=== PATIENT | male | born 1935 | race Caucasian/White ===

== ENCOUNTER → 2023-02-19 | Outpatient (CLI) | payer MEDICARE, BC, SELFPAY ==
[2023-02-20 11:47] LABS: PSA,Total- Diagnostic < 0.01 ng/mL (0.0-4.0)
== END | disposition home or self-care (01) ==
PROVIDERS: PCP Internal Medicine; Referring Provider Urology; Visit Provider Urology
DX: C61 Malignant neoplasm of prostate (principal); Z12.5 Encounter for screening for malignant neoplasm of prostate
CPT/HCPCS: 36415; 84153; G0103

== ENCOUNTER 2023-03-17 10:19 | Outpatient (CLI) | payer MEDICARE, BC, SELFPAY ==
[2023-03-17 12:45] LABS: Absolute Lymphocyte Count 0.55 X10^3/uL (0.83-4.51); Absolute Neutrophil Count 5.9 X10^3/uL (2.0-7.7); Basophil# 0.06 X10^3/uL; Basophil% 0.8 % (0-1); Eosinophil# 0.14 X10^3/uL; Hematocrit 39.2 % (40-54); Hemoglobin 12.3 g/dL (13.0-16.5); Lymphocyte # 0.55 X10^3/ul (0.83-4.51); Lymphocyte % 7.7 % (19-41); Mean Corp Hgb Conc 31.4 g/dL (32-36); Mean Corpuscular Hgb 29.9 pg (27.0-32.0); Mean Corpuscular Volume 95.1 fL (80-94); Mean Platelet Vol. 10.7 fl (6.2-12.0); NRBC Flagged by Analyzer 0 % (0-5); Neutrophil # 5.87 X10^3/uL (2.7-7.7); Neutrophil % 82.2 % (47-70); POSITIVE DIFFERENTIAL YES; Platelet Count 238 K/mm3 (150-450); RBC Distribution Width CV 14.1 % (11.6-14.6); RBC Distribution Width SD 49.1 fl (35.1-43.9); Red Blood Count 4.12 M/mm3 (4.6-6.2); White Blood Count 7.1 K/mm3 (4.4-11.0)
[2023-03-17 12:47] LABS: Differential Indicated SCAN CRITERIA MET
[2023-03-17 13:15] LABS: ALB/GLOB Ratio 0.9 RATIO (0.9-2.4); AST(SGOT) 17 U/L (15-37); Alanine Aminotransfer ALT/SGPT 18 U/L (16-61); Albumin, Serum 3.5 g/dL (3.2-5.0); Alkaline Phosphatase 81 U/L (45-117); Anion Gap 5 (5-15); BUN 25 mg/dL (7-18); BUN/Creat Ratio 24.8 RATIO (10-20); Calcium,Total 9.3 mg/dL (8.5-10.1); Chloride 106 mmol/L (98-107); Cholesterol 115 mg/dL (200); Creatinine, Serum 1.01 mg/dL (0.70-1.30); EST Glomerular Filtration Rate 74 mL/min (>60); Est Glom Filt Rate - Afr Amer 90 mL/min (>60); Globulin 3.7 g/dL (2.2-4.2); Glucose 105 mg/dL (74-106); High Density Lipoprotein 51 mg/dL; Potassium 4.5 mmol/L (3.5-5.1); Protein, Total 7.2 g/dL (6.4-8.2); Sodium Level 139 mmol/L (136-145); Thyroid Stim Hormone (TSH) 2.99 uIU/mL (0.358-3.74); Triglycerides 100 mg/dL; Very Low Density Lipoprotein 20 mg/dL (5-40)
[2023-03-17 13:28] LABS: Differential Comment SCANNED
== END 2023-03-17 23:59 | disposition home or self-care (01) ==
LOC: MFPLAB 10:20
PROVIDERS: PCP Family Medicine; Visit Provider Family Medicine
DX: I25.10 Atherosclerotic heart disease of native coronary artery without angina pectoris (principal)
CPT/HCPCS: 36415; 80053; 80061; 84443; 85025

== ENCOUNTER → 2023-06-22 | Outpatient (CLI) | payer MEDICARE, BC, SELFPAY ==
[2023-06-22 10:55] LABS: PSA,Total- Diagnostic < 0.01 ng/mL (0.0-4.0)
== END | disposition home or self-care (01) ==
LOC: LAB 10:08
PROVIDERS: PCP Family Medicine; Referring Provider Urology; Visit Provider Urology
DX: C61 Malignant neoplasm of prostate (principal)
CPT/HCPCS: 36415; 84153

== ENCOUNTER → 2023-10-19 | Outpatient (CLI) | payer MEDICARE, BC, SELFPAY ==
[2023-10-19 11:44] LABS: PSA,Total- Diagnostic < 0.01 ng/mL (0.0-4.0)
== END | disposition home or self-care (01) ==
LOC: LAB 09:40
PROVIDERS: PCP Family Medicine; Referring Provider Nurse Practitioner; Visit Provider Nurse Practitioner
DX: C61 Malignant neoplasm of prostate (principal)
CPT/HCPCS: 36415; 84153

== ENCOUNTER → 2023-10-29 | Outpatient (CLI) | payer MEDICARE, BC, SELFPAY ==
--- NOTE | 2023-10-29 06:48 | CT_ITS ---
STUDY: CT ABDOMEN AND PELVIS WITH AND WITHOUT CONTRAST REASON FOR EXAM: Male, 88 years old. Gross hematuria RADIATION DOSAGE (If Supplied By Facility): CTDIvol = ( 13.27 ) mGy, DLP = ( 1487.68 ) mGycm TECHNIQUE: Transaxial images were obtained from the dome of the diaphragm to the symphysis pubis without oral contrast. IV 100mL Isovue-300 was administered. Sagittal and coronal images were reconstructed. Individualized dose optimization techniques were used for this CT. COMPARISON: None. FINDINGS: Mild increased interstitial markings at the lung bases suggesting mild scarring. Coronary artery calcification. Normal liver. There are multiple small gallstones. There are scattered benign calcified granulomata of the spleen. Normal pancreas. Normal bilateral adrenal glands. Normal right kidney. Normal left kidney. Normal visualized stomach. Normal small intestine. Normal colon. The appendix is visualized and appears normal. There is diffuse atherosclerotic calcification of the abdominal aorta and its major visceral branches, without a demonstrated aneurysm. Normal inferior vena cava. Normal retroperitoneum. Diffuse bladder wall thickening is seen. Cystocele. Surgical clips are seen in the region of the prostate bed suggestive of prior prostatectomy. Normal abdominal wall. There are diffuse degenerative changes of the visualized lumbar spine. Status post right total hip replacement causing beam hardening artifact in the region of the pelvis. CT/CT Abd/Pelvis W/WO Contrast IMPRESSION: Status post prostatectomy with a cystocele and bilateral wall thickening. Multiple small gallstones. Electronically Signed: Julian Talamantes MD at 15:20 EDT ,
[2023-10-29 07:17] LABS: CREATININE FINGERSTICK 1.1 mg/dL (0.70-1.30); EGFR FINGERSTICK > 60.0000 mL/min (>60)
== END | disposition home or self-care (01) ==
LOC: CT 06:47
PROVIDERS: PCP Family Medicine; Referring Provider Urology; Visit Provider Urology
DX: R31.0 Gross hematuria (principal)
CPT/HCPCS: 74178; Q9967

== ENCOUNTER → 2023-10-30 | Outpatient (CLI) | payer MEDICARE, BC, SELFPAY ==
--- NOTE | 2023-10-30 10:40 | RAD_ITS ---
STUDY: X-RAY - RIGHT FEMUR REASON FOR STUDY: Male, 88 years old. Right thigh injury. TECHNIQUE: 4 views of the right femur. COMPARISON: None. FINDINGS: There is a right hip arthroplasty. There is no periprosthetic fracture. Normal remainder of the visualized femur. There is no demonstrated fracture or destructive process. Normal visualized soft tissue structure. RAD/Femur Min 2 Views IMPRESSION: Right hip arthroplasty, with no periprosthetic fracture. Electronically Signed: Alessandro Hsieh MD at 11:17 EDT ,
== END | disposition home or self-care (01) ==
LOC: MTRAD 10:38
PROVIDERS: PCP Family Medicine; Referring Provider Family Medicine; Visit Provider Family Medicine
DX: S70.10XA Contusion of unspecified thigh, initial encounter (principal)
CPT/HCPCS: 73552

== ENCOUNTER 2023-11-18 12:40 | Day surgery (SDC) | payer MEDICARE, BC, SELFPAY ==
--- NOTE | 2023-11-18 | IMM_PTH ---
PATIENT: CELIA PRICE LOC: [facility] [place] U#:[id number] AGE/SX: 88/M ROOM: RE11/18/[address]: Dr. Fortino Marquez MD : 1935 BED: DIS: 11/18/2023 SPEC #: [id number] RECD: 11/20/23 14:57 STATUS: MAHESH REQ #: [id number] UNRULY: 11/18/23 00:[address]: Fortino Marquez DEPT: IMMUNOHISTOCHEMISTRY RECD BY: Bo Perez ENTERED: 11/20/23 14:59 SP TYPE: IMMUNO OTHR DR: Kassie Vital MD Tissues: Urinary bladder, NOS Procedures: CD31 (add) CK20 (add) CK5-6 (add) DESMIN (add) KI-67 (add) P53 (add) 34BE12 (add) SMM (add) FACTOR VIII (add) GATA3 (add) CK7 (initial) PHYSICIAN [facility] INSTIT[facility] [address] [address] SPECIMEN INFORMATION: Tissue Source: Bladder tumor Clinical Info: Bleeding bladder mass Specimen Number: [id number] CPT code: 69147, 11944e84 METHODOLOGY: Deparaffinized sections of prefer/formalin-fixed tissue or PAP/DQ stained slides are incubated with monoclonal/polyclonal antibodies/oligonucleotide probes. Localization is made via biotin free immunoperoxidase method. Appropriate controls are performed and reacted as expected. Results on target cell population are indicated in the following table: RESULTS: ANTIBODY / CLONE RESULT GATA3 (L50-823) positive CK7 (OV-TL12/30) positive CK20 (KS20.8) positive 34BE12 (34BE12) positive CD31 (LOAN/70A) negative Factor VIII (R Ag) negative Myosin (simms1) negative Desmin (CE-R-11) negative CK5-6 (D5 & 1684) negative P53 (DO-7) negative , null pattern Ki-67 (30-9) positive These tests were developed and their performance characteristics determined by [facility]. They may not have been cleared or approved by the U.S. Food and Drug Administration. The FDA has determined that such clearance or approval is not necessary. The above immunohistochemical/dualISH markers are ordered and reviewed by the Pathologist. INTERPRETATION: Bladder tumor, transurethral resection: Invasive urothelial carcinoma. RICHARD/ 11/23/23
[2023-11-18 13:22] VITALS: BP 143/85; PULSE 64; RESP 18; TEMP 37.2; O2SAT 99; BMI 22.7
[2023-11-18 13:23] LABS: Hematocrit 35.8 % (40-54); Hemoglobin 11.7 g/dL (13.0-16.5); Mean Corp Hgb Conc 32.7 g/dL (32-36); Mean Corpuscular Hgb 30.4 pg (27.0-32.0); Mean Platelet Vol. 9.9 fl (6.2-12.0); Platelet Count 264 K/mm3 (150-450); RBC Distribution Width CV 13.9 % (11.6-14.6); RBC Distribution Width SD 47.4 fl (35.1-43.9); Red Blood Count 3.85 M/mm3 (4.6-6.2); White Blood Count 6.7 K/mm3 (4.4-11.0)
[2023-11-18] MEDS: Lactated Ringers 1,000 ML 15 ML IV (13:27)
[2023-11-18 13:34] LABS: Prothrombin Time (Protime)PT. 12.7 SECONDS (11.7-14.9)
[2023-11-18 13:35] LABS: Partial Thromboplast Time 25.9 Seconds (24.1-36.2)
[2023-11-18 13:37] LABS: AST(SGOT) 18 U/L (15-37); Alanine Aminotransfer ALT/SGPT 14 U/L (16-61); Albumin, Serum 3.5 g/dL (3.2-5.0); Alkaline Phosphatase 108 U/L (45-117); Anion Gap 3 (5-15); BUN 32 mg/dL (7-18); BUN/Creat Ratio 28.3 RATIO (10-20); Calcium,Total 9.1 mg/dL (8.5-10.1); Chloride 106 mmol/L (98-107); Creatinine, Serum 1.13 mg/dL (0.70-1.30); EST Glomerular Filtration Rate 65 mL/min (>60); Est Glom Filt Rate - Afr Amer 79 mL/min (>60); Globulin 3.6 g/dL (2.2-4.2); Glucose 98 mg/dL (74-106); Potassium 4.2 mmol/L (3.5-5.1); Protein, Total 7.1 g/dL (6.4-8.2); Sodium Level 137 mmol/L (136-145)
--- NOTE | 2023-11-18 14:09 | PCM.HP.STD ---
HPI - General General Date of Service: 11/18/23 Chief Complaint: Bleeding bladder mass HPI Narrative CELIA PRICE, is a 88 M who presents for a transurethral section of a tumor in his bladder that is been bleeding as a history of prostate cancer. [facility] Medical History (Updated 11/17/23 @ 13:23 by Hayde Fountain) Alcohol use Arthritis Atherosclerosis of coronary artery of [place] heart without angina pectoris Bladder disease Cancer Cardiology follow-up encounter Easy bruising Fall Former smoker History of echocardiogram History of heart attack History of pain when walking History of stress test Hyperlipidemia Insomnia Loss of hearing Low iron Osteopenia RBBB (right bundle branch block) Walker as ambulation aid Wears glasses Home Medications aspirin 81 mg tablet,delayed release (Adult Low Dose Aspirin) 81 mg PO DAILY 03/26/23 [History Last Taken 11/15/23] atorvastatin 20 mg tablet 20 mg PO QHS 03/26/23 [History Last Taken 11/17/23] celecoxib 200 mg capsule 200 mg PO DAILY 03/26/23 [History Last Taken 11/17/23] metoprolol succinate 25 mg tablet,extended release 24 hr 25 mg PO DAILY 03/26/23 [History Last Taken 11/18/23] cholecalciferol (vitamin D3) 25 mcg (1,000 unit) capsule 25 mcg PO DAILY 04/17/23 [History Last Taken 11/17/23] coenzyme Q10 200 mg capsule 200 mg PO DAILY 04/17/23 [History Last Taken 11/17/23] glucosamine HCl 1,500 mg tablet 1,200 mg PO DAILY 04/17/23 [History Last Taken 11/17/23] lactobacillus combination no.9 4 billion cell capsule (Adult 50 Plus Probiotic) 4,000 mmu cells PO DAILY 04/17/23 [History Last Taken 11/17/23] multivitamin 1 tab PO DAILY 04/17/23 [History Last Taken 11/17/23] losartan 50 mg tablet 50 mg PO DAILY #90 tabs 09/16/23 [Rx Last Taken 11/18/23] krill 1,000 mg-omega-3 170 mg-dha 50 mg-epa 80 st-zhmmhc-gxahg capsule (krill oil) 1 cap PO DAILY 11/17/23 [History Last Taken 11/16/23] ciprofloxacin HCl 500 mg tablet (Cipro) 500 mg PO BID #10 tabs 11/18/23 [Rx Last Taken Unknown] Allergy/AdvReac Type Severity Reaction Status Date / Time codeine Allergy Unknown Unknown Verified 11/18/23 13:19 niacin Allergy Unknown itching Verified 11/18/23 13:19 Family History Father , 67 Heart disease Mother Hypertension CVA (cerebral vascular accident) Brother CAD (coronary artery disease) CABG Surgical History (Updated 11/17/23 @ 13:23 by Hayde Fountain) History of coronary artery stent placement (12/14/19) History of hernia repair History of left heart catheterization History of prostatectomy History of total right hip replacement Hx of colonoscopy Hx of left cataract extraction Hx of right cataract extraction Social History Smoking Status: Former smoker alcohol intake: current alcohol intake frequency: holidays/special occasions only caffeine: Yes Type: coffee Number of servings: 4 Vital Signs Vital Signs Vital Signs: 11/18/23 13:22 11/18/23 13:22 Temperature 99.0 F Temperature Source Temporal Pulse Rate 64 Respiratory Rate 18 Respiratory Pattern Normal Blood Pressure 143/85 H Blood Pressure Mean 104 Blood Pressure Source Monitor Blood Pressure Position Semi-Fowlers Blood Pressure Location Right Arm Pulse Ox 99 Oxygen Delivery Method Room Air Weight Weight: 72 kg Body Mass Index (BMI) 22.7 Results Lab / Micro Data 11/18/23 13:10 11/18/23 13:10 Labs: Laboratory Results - last 24 hr 11/18/23 13:10: WBC 6.7, RBC 3.85 L, Hgb 11.7 L, Hct 35.8 L, MCV 93.0, MCH 30.4, MCHC 32.7, RDW Std Deviation 47.4 H, RDW Coeff of Daniela 13.9, Plt Count 264, MPV 9.9, PT 12.7, INR 1.0, APTT 25.9, Sodium 137, Potassium 4.2, Chloride 106, Carbon Dioxide 28.0, Anion Gap 3 L, BUN 32 H, Creatinine 1.13, Estim Creat Clear Calc 46.90, Est GFR (MDRD) Af Amer 79, Est GFR (MDRD) Non-Af 65, BUN/Creatinine Ratio 28.3 H, Glucose 98, Calcium 9.1, Total Bilirubin 0.70, Direct Bilirubin 0.20, AST 18, ALT 14 L, Alkaline Phosphatase 108, Total Protein 7.1, Albumin 3.5, Globulin 3.6
--- NOTE | 2023-11-18 14:10 | DCINST_ITS ---
Discharge Instructions Diet Discharge Diet: No restrictions Activity Discharge Activity: Return to Normal Activity and May Not Drive (while taking narcotic pain medications.) Dressing / Incision Call your doctor if you observe: Fever of 101 or Higher Follow Up Care Please Follow Up With: Fortino Marquez MD When: Call [phone] for an appointment Test Results: Test results from this visit will be discussed in further detail at your follow- up appointment, if applicable. Discharge Plan Admission Primary Reason for Your Visit: Resection of bladder tumor Attending Provider: Fortino Marquez Primary Care Provider: Kassie Vital Discharge Orders/Prescriptions Prescriptions: New ciprofloxacin HCl [Cipro] 500 mg tablet 500 mg PO BID Qty: 10 0RF Continued atorvastatin 20 mg tablet 20 mg PO QHS celecoxib 200 mg capsule 200 mg PO DAILY metoprolol succinate 25 mg tablet extended release 24 hr 25 mg PO DAILY glucosamine HCl 1,500 mg tablet 1,200 mg PO DAILY Rx Instructions: administer with a meal multivitamin Tablet 1 tab PO DAILY Adult 50 Plus Probiotic 4 billion cell capsule 4,000 mmu cells PO DAILY Rx Instructions: administer with a meal cholecalciferol (vitamin D3) 25 mcg (1,000 unit) capsule 25 mcg PO DAILY coenzyme Q10 200 mg capsule 200 mg PO DAILY krill oil 1,906-981-10-80 mg capsule 1 cap PO DAILY losartan 50 mg tablet 50 mg PO DAILY Qty: 90 3RF Held aspirin [Adult Low Dose Aspirin] 81 mg tablet,delayed release (DR/EC) 81 mg PO DAILY Hold Instructions: Resume on 12/02/23. Referrals / Follow Up: Kassie Vital MD [Primary Care Provider] - Fortino Marquez MD [Med Staff - Active Staff] - Disposition Disposition (needs filled in before D/C Order can be placed): Home, Self Care
[2023-11-18] MEDS: Cefazolin 2 GM in 0.9% Normal Saline (100mL Bag) 100 ML IV (14:14)
[2023-11-18] MEDS: Ketorolac 30 MG/ML Syringe 15 MG IV (14:30)
[2023-11-18] MEDS: MitoMYcin 40 MG in Syringe 1 EACH 2400 MG INSTILLAT (14:43)
--- NOTE | 2023-11-18 14:44 | OP.PCM_ITS ---
Report of Operation Date of Procedure: 11/18/23 Pre-Operative Diagnosis: Transurethral resection of bladder tumors multiple med ium size Post-Operative Diagnosis: The same the size of tumors were 2 tumors total size 2.5 cm x 3 cm Surgery/Procedure Performed:: Transurethral section of bladder tumors multiple medium size Description of Surgical Findings:: Patient presented to the hospital for treatment of a tumor that was found in the bladder with a very large bladder tumor. Patient understands is possible it may not be able to resect the entire tumor. Patient also understands is possible that the patient may need multiple procedures or more invasive procedures to cure him of this cancer. Patient was taken back to the operating room after smooth induction of anesthesia the patient was placed supine on the table. The patient was placed in dorsolithotomy position. The urethra and genitals prepped and draped in usual sterile fashion. I went into the bladder with a 30 degree lens and a cystoscope was performed and identified the tumor the tumors which was about 2.5cm x 3cma centimeters in size and occupying the left bladder neck and posterior wall of the bladder. I then switched over to the 70 degree lens and inspected the rest of the bladder with a 70 degree lens to make sure there is no other tumors in the bladder and to identify all the tumor locations. The right and left ureteral orifice were identified. The tumor was involved in the ureteral orifice. I then placed the Olympus bipolar resectoscope with a large loop into the bladder. I then started resected the tumor and started superficially shaving small little pieces working my way to the base of the tumor. As I went along I then cauterize any bleeders that were encountered during the resection. The tumor pieces were then flushed out of the bladder and continued resecting the tumor until finally I got down to the base of the tumor and the muscle of the bladder was then identified a small little bit of muscle was taken with the resection. The Ellik was used then to evacuate all the tumor pieces out of the bladder. I then cauterized extensively the tumor base and also circumferentially around where the tumor was. Again we made sure to evacuate all the pieces out the bladder. I made sure there was no more bleeding from the base of the bladder and then over the tumor pieces were then evacuated out and sent off as a specimen. After the resection of the entire tumor was completed then treatment with Mitomycin-C was performed. We then placed the catheter in the bladder and the patient was taken back to the PACU in stable condition. Surgeon: Fortino Marquez Type of Anesthesia: General Drains: none Estimated Blood Loss (mL): 0 Admit VTE Documentation VTE Present on Admission: No VTE Mechan Device Prophylaxis: SCD's VTE Pharm Prophylaxis ordered?: No
[2023-11-18 14:55] VITALS: BP 138/62; BP 143/85; PULSE 61; RESP 16; TEMP 36.9; O2SAT 100
[2023-11-18 15:00] VITALS: BP 143/85; BP 144/62; PULSE 61; RESP 16; O2SAT 98
--- NOTE | 2023-11-18 15:05 | BLB_PTH ---
PATIENT: CELIA PRICE LOC: [facility] [place] U#:[id number] AGE/SX: 88/M ROOM: RE11/18/[address]: Dr. 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 See synoptic report below. 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 Additional pathologic findings: Tumor cell necrosis PATHOLOGIC STAGE: T1 Nx Mx The above summary is in compliance with [employer] (CAP) Cancer Protocols Checklist and [place] [employer] Committee on Cancer (AJCC), Staging Manual, 8th Ed. Immunohistochemistry ([id number]) supports the above diagnosis. Case has been reviewed in consultation with Dr. Huggins who concurs with the above diagnosis. IDC:[email or web address] MICROSCOPIC DESCRIPTION Slides are reviewed. GROSS DESCRIPTION Received in fixative is one container labeled with the patient's name and designated Bladder tumor. The specimen consists of multiple irregular fragments of majano-brown soft tissue that in aggregate measure 2.0 x 0.5 x 0.1 cm. The specimen is totally submitted in one cassette. SJ/ 11/19/2023 TC:0 CPT:02805
[2023-11-18 15:15] VITALS: BP 142/64; BP 143/85; PULSE 62; RESP 16; O2SAT 99
[2023-11-18 15:29] VITALS: BP 143/85; BP 153/76; PULSE 65; RESP 16; TEMP 36.8; O2SAT 100
[2023-11-18 16:27] VITALS: BP 143/85
== END 2023-11-18 16:35 | disposition home or self-care (01) ==
LOC: SDC 12:41 → AC 12:42
PROVIDERS: Anesthesiology; PCP Family Medicine; Referring Provider Family Medicine; Visit Provider Urology
PROC: 0T5B8ZZ Destruction of Bladder, Via Natural or Artificial Opening Endoscopic (ICD-10-PCS; CPT 51720; principal; 2023-11-18 14:55)
DX: C67.9 Malignant neoplasm of bladder, unspecified (principal); E78.5 Hyperlipidemia, unspecified; Z82.3 Family history of stroke; I25.10 Atherosclerotic heart disease of native coronary artery without angina pectoris; Z79.82 Long term (current) use of aspirin; Z87.891 Personal history of nicotine dependence; Z85.46 Personal history of malignant neoplasm of prostate; I25.2 Old myocardial infarction; Z95.5 Presence of coronary angioplasty implant and graft; I45.10 Unspecified right bundle-branch block; R23.3 Spontaneous ecchymoses; Z87.19 Personal history of other diseases of the digestive system; Z96.641 Presence of right artificial hip joint; Z98.42 Cataract extraction status, left eye; Z98.41 Cataract extraction status, right eye; Z90.79 Acquired absence of other genital organ(s)
CPT/HCPCS: 52235; 00912; 80048; 80076; 85027; 85610; 85730; 88307; 88341; 88342; J7120; J9280; J2405

== ENCOUNTER 2024-01-18 09:22 | Inpatient (IN) | payer MEDICARE, BC, SELFPAY ==
[2024-01-18] VITALS (10 sets, daily range): BP systolic 106–151; BP diastolic 57–134; PULSE 65–99; RESP 17–18; TEMP 36.3–36.7; O2SAT 94–100; BMI 21.7; BMI 20.9
--- NOTE | 2024-01-18 09:47 | EX.ED.DYSGE1 ---
HPI History of Present Illness Chief Complaint: Weakness [facility] Medical History (Updated 11/17/23 @ 13:23 by Hayde Fountain) Loss of hearing Wears glasses Cancer Alcohol use Arthritis Walker as ambulation aid Bladder disease Low iron Easy bruising Fall Former smoker History of pain when walking History of echocardiogram History of stress test Cardiology follow-up encounter History of heart attack Atherosclerosis of coronary artery of [place] heart without angina pectoris RBBB (right bundle branch block) Hyperlipidemia Insomnia Osteopenia Home Medications ?Medication ?Instructions ?Recorded ?Last Taken ?Type aspirin 81 mg tablet,delayed 81 mg PO DAILY 03/26/23 11/15/23 History release (Adult Low Dose Aspirin) atorvastatin 20 mg tablet 20 mg PO QHS 03/26/23 01/15/24 History celecoxib 200 mg capsule 200 mg PO DAILY 03/26/23 01/15/24 History metoprolol succinate 25 mg 25 mg PO DAILY 03/26/23 01/15/24 History tablet,extended release 24 hr cholecalciferol (vitamin D3) 25 25 mcg PO DAILY 04/17/23 01/15/24 History mcg (1,000 unit) capsule coenzyme Q10 200 mg capsule 200 mg PO DAILY 04/17/23 01/15/24 History glucosamine HCl 1,500 mg tablet 1,200 mg PO DAILY 04/17/23 01/15/24 History lactobacillus combination no.9 4 4,000 mmu cells PO DAILY 04/17/23 01/15/24 History billion cell capsule (Adult 50 Plus Probiotic) multivitamin 1 tab PO DAILY 04/17/23 01/15/24 History losartan 50 mg tablet 50 mg PO DAILY #90 tabs 09/16/23 01/15/24 Rx krill 1,000 mg-omega-3 170 mg-dha 1 cap PO DAILY 11/17/23 11/16/23 History 50 mg-epa 80 [id number]-[id number] capsule (krill oil) Allergy/AdvReac Type Severity Reaction Status Date / Time codeine Allergy Unknown Unknown Verified 01/18/24 09: niacin Allergy Unknown itching Verified 01/18/24 09:23 Family History Father , 67 Heart disease Mother Hypertension CVA (cerebral vascular accident) Brother CAD (coronary artery disease) CABG Surgical History (Updated 11/17/23 @ 13:23 by Hayde Fountain) Hx of colonoscopy Hx of right cataract extraction Hx of left cataract extraction History of coronary artery stent placement (12/14/19) History of left heart catheterization History of prostatectomy History of total right hip replacement History of hernia repair Social History Smoking Status: Former smoker alcohol intake: current alcohol intake frequency: holidays/special occasions only caffeine: Yes Type: coffee Number of servings: 4 EXAM Physical Exam Const Vital Signs: 01/18/24 09:24 01/18/24 10:07 01/18/24 10:23 Temperature 97.4 F L Temperature Source Temporal Pulse Rate 99 75 Respiratory Rate 18 18 Respiratory Pattern Normal Blood Pressure 151/134 H 120/57 L Blood Pressure Mean 139 78 Pulse Ox 97 95 Oxygen Delivery Method Room Air Room Air 01/18/24 10:27 01/18/24 11:10 Temperature 97.6 F L 97.6 F L Temperature Source Temporal Temporal Pulse Rate 81 82 Respiratory Rate 18 17 Respiratory Pattern Blood Pressure 120/57 L 106/60 Blood Pressure Mean 78 75 Pulse Ox 95 96 Oxygen Delivery Method Room Air Room Air MDM MDM MDM Narrative Medical decision making narrative: HISTORY OF PRESENT ILLNESS: 88-year-old male presents with concern for weakness. He is unable to care for himself per his . He has not been eating or drinking. He does not voice concerns he just moans in pain. REVIEW OF SYSTEMS: Pertinent positives: weakness Pertinent negatives: [] PHYSICAL EXAM: Nursing triage notes reviewed, Vital signs reviewed Constitutional: please see mdm HENT: MMM Eyes: Pupils equal round and reactive to light, Extraocular muscles intact Neck: No stridor, no JVD, full neck ROM Lungs: Clear to auscultation, No wheezing or rales. No increased work of breathing, no conversational dyspnea, no accessory muscle use, no nasal flaring. No respiratory distress noted Heart: Regular rate and rhythm, No murmurs, No rubs and No gallops, 2+ distal pulses (radial, femoral, posterior tibial) in all extremities Abdomen: Soft, there is no tenderness, rigidity, rebound or guarding, no obvious peritoneal signs, no palpable pulsatile abdominal masses, no auscultated abdominal bruit : No CVAT Extremities: No edema Neuro: No focal neurological deficits, cranial nerves II through XII intact, 5/5 strength in all extremities. Intact sensation to light touch in all extremities, 2+ reflexes bilateral patella tendons. Normal gait. No ataxia. Skin: No rash or lesions noted, small punctate defect to the sacrum no obvious sacral decubitus ulcer infection noted MEDICAL DECISION MAKING: Chief Complaint: Weakness External records reviewed: Imaging reviewed: Reviewed CT scan of the abdomen pelvis from October 2023 shows no obvious surgical abnormality Factors affecting care: Hypertension, CAD, hyperlipidemia, prostate and bladder cancer Social determinants of health: Elderly History obtained from others: The patient's Consults: Internal medicine (Dr. Fry) MDM Narrative: Patient was hemodynamically stable, afebrile and nontoxic. Exam without focal deficits. I considered the following differential diagnosis: UTI, pneumonia, ACS, arrhythmia, anemia, electrolyte disturbance, dehydration ALL IMAGES (IF OBTAINED) HAVE BEEN PERSONALLY REVIEWED AND INTERPRETED BY MYSELF. I have personally reviewed the patient's chest x-ray. Chest x-ray is unremarkable for pulmonary edema, pneumothorax, pneumonia or focal cardiopulmonary abnormality. CBC with no leukocytosis, noted mild anemia, thrombocytopenia BMP with hyponatremia, no other significant [place] normalities, noted ADRIAN on CKD, noted hypercalcemia, High-sensitivity troponin is negative, no evidence of myocardial ischemia BNP within normal limits EKG with normal sinus rhythm, left ax deviation, right bundle branch block, no STEMI Urinalysis evidence of inflammation and infection The synthesis of the patient's history, physical exam, labs images suggest likely UTI The patient and/or family, caregivers express understanding. The patient and/or family, caregivers agrees with the plan. Shared decision making: I will have a discussion with the patient and or visitors regarding risk/benefits of further testing or admission. They will be made aware of of the risk/benefits inherent in this decision they will be given the opportunity to voice understanding. Total critical care time today provided was at least 0 minutes. This excludes separately billable procedures. Critical care time (if documented) is secondary to the patient having high probability of clinically significant/life threatening deterioration in the patient's condition which required my urgent intervention. Impression: 1. Weakness 2. Adult failure to thrive 3. UTI 4. ADRIAN 5. Hypercalcemia Dispo: Admit to floor This note was generated with SmashFlyation software. It may contain incorrect words, spelling, and punctuation that were not noted in review of the chart prior to signing. Lab Data Labs: Laboratory Results - last 24 hr 01/18/24 01/18/24 01/18/24 09:46 10:07 10:34 WBC 5.6 RBC 4.45 L Hgb 12.6 L Hct 38.7 L MCV 87.0 MCH 28.3 MCHC 32.6 RDW Std Deviation 42.7 RDW Coeff of Daniela 13.5 Plt Count 247 MPV 10.3 Immature Gran % (Auto) 0.500 Neut % (Auto) 76.2 H Lymph % (Auto) 11.2 L Wolfe % (Auto) 11.2 H Eos % (Auto) 0.2 Baso % (Auto) 0.7 Absolute Neuts (auto) 4.2 Absolute Lymphs (auto) 0.62 L Nucleated RBC % 0 Sodium 130 L Potassium 4.3 Chloride 97 L Carbon Dioxide 26.0 Anion Gap 7 BUN 41 H Creatinine 1.67 H Estim Creat Clear Calc 30.28 Est GFR (MDRD) Af Amer 50 L Est GFR (MDRD) Non-Af 42 L BUN/Creatinine Ratio 24.6 H Glucose 122 H Calcium 11.4 H Troponin I High Sens 9 B-Natriuretic Peptide 59.7 Urine Color Yellow Urine Clarity Cloudy Urine pH 5.0 Ur Specific [place] 1.020 Urine Protein 30 H Urine Glucose (UA) Normal Urine Ketones 5 H Urine Occult Blood 25 H Urine Nitrite Negative Urine Bilirubin Negative Urine Urobilinogen Normal Ur Leukocyte Esterase 500 H Urine RBC 0-5 SEEN Urine WBC 25-50 SEEN Ur Squamous Epith Cells 0-5 SEEN Amorphous Sediment 1+ Urine Bacteria 1+ Urine Mucus RARE POC Glucose 118 H Radiography Diagnostic Testing: Clinical Impression(s) from Imaging Studies Chest X-Ray 01/18/24 10:03 IMPRESSION: Elevation of the left hemidiaphragm. Increased interstitial markings at the lung bases suggestive basilar scarring. Electronically Signed: Julian Talamantes MD at 10:17 EDT , Discharge Plan Triage Chief Complaint: Weakness ED Provider: Lloyd Jones Dx/Rx/DC Orders Prescriptions: No Action aspirin [Adult Low Dose Aspirin] 81 mg tablet,delayed release (DR/EC) 81 mg PO DAILY atorvastatin 20 mg tablet 20 mg PO QHS celecoxib 200 mg capsule 200 mg PO DAILY metoprolol succinate 25 mg tablet extended release 24 hr 25 mg PO DAILY glucosamine HCl 1,500 mg tablet 1,200 mg PO DAILY Rx Instructions: administer with a meal multivitamin Tablet 1 tab PO DAILY Adult 50 Plus Probiotic 4 billion cell capsule 4,000 mmu cells PO DAILY Rx Instructions: administer with a meal cholecalciferol (vitamin D3) 25 mcg (1,000 unit) capsule 25 mcg PO DAILY coenzyme Q10 200 mg capsule 200 mg PO DAILY krill oil 1,801-977-61-80 mg capsule 1 cap PO DAILY losartan 50 mg tablet 50 mg PO DAILY Qty: 90 3RF Primary Care Provider: Kassie Vital Referrals: Kassie Vital MD [Primary Care Provider] - Print Language: Lithuanian
--- NOTE | 2024-01-18 09:50 | EKG12_ITS ---
Test Reason : Blood Pressure : / mmHG Vent. Rate : 084 BPM Atrial Rate : 084 BPM P-R Int : 150 ms QRS Dur : 120 ms QT Int : 380 ms P-R-T Axes : 060 -15 -14 degrees QTc Int : 449 ms Normal sinus rhythm with sinus arrhythmia Right bundle branch block Inferior infarct , age undetermined Abnormal ECG Confirmed by Ronak Godoy ([id number]), editor producer ABDELRAHMAN MULTANI ([id number]) on 01/19/2024 9:09:30 AM Referred By: ABEL Confirmed By:Ronak Godoy
[2024-01-18 10:01] LABS: Absolute Lymphocyte Count 0.62 X10^3/uL (0.83-4.51); Absolute Neutrophil Count 4.2 X10^3/uL (2.0-7.7); Basophil# 0.04 X10^3/uL; Basophil% 0.7 % (0-1); Eosinophil# 0.01 X10^3/uL; Eosinophils% 0.2 % (0-5); Hematocrit 38.7 % (40-54); Hemoglobin 12.6 g/dL (13.0-16.5); Lymphocyte # 0.62 X10^3/ul (0.83-4.51); Lymphocyte % 11.2 % (19-41); Mean Corp Hgb Conc 32.6 g/dL (32-36); Mean Corpuscular Hgb 28.3 pg (27.0-32.0); Mean Platelet Vol. 10.3 fl (6.2-12.0); Monocyte# 0.62 X10^3/uL; Monocyte% 11.2 % (0-10); NRBC Flagged by Analyzer 0 % (0-5); Neutrophil # 4.24 X10^3/uL (2.7-7.7); Neutrophil % 76.2 % (47-70); Platelet Count 247 K/mm3 (150-450); RBC Distribution Width CV 13.5 % (11.6-14.6); RBC Distribution Width SD 42.7 fl (35.1-43.9); Red Blood Count 4.45 M/mm3 (4.6-6.2); White Blood Count 5.6 K/mm3 (4.4-11.0)
--- NOTE | 2024-01-18 10:03 | RAD_ITS ---
STUDY: X-RAY CHEST REASON FOR EXAM: Male, 88 years old. Weakness TECHNIQUE: Single AP portable view of the chest. COMPARISON: Comparison is made with prior study dated April 13, 2013. FINDINGS: EKG electrodes are seen. Mild elevation of the left hemidiaphragm. Increased markings at the lung bases suggestive of linear scarring. There is no demonstrated pleural abnormality. Normal size heart. Normal mediastinum and kyra. Normal visualized pulmonary arteries. Normal visualized aortic arch and descending thoracic aorta. There are diffuse degenerative changes of the visualized thoracic spine. Normal visualized ribs, clavicles, and shoulders. There is no demonstrated abnormality of the visualized soft tissue structures of the upper abdomen. RAD/Chest 1 View (Portable) IMPRESSION: Elevation of the left hemidiaphragm. Increased interstitial markings at the lung bases suggestive basilar scarring. Electronically Signed: Julian Talamantes MD at 10:17 EDT ,
[2024-01-18] MEDS: 0.9% Normal Saline (500mL Bag) 500 ML 1000 ML IV (10:09)
[2024-01-18 10:20] LABS: Anion Gap 7 (5-15); BUN 41 mg/dL (7-18); BUN/Creat Ratio 24.6 RATIO (10-20); Calcium,Total 11.4 mg/dL (8.5-10.1); Chloride 97 mmol/L (98-107); Creatinine, Serum 1.67 mg/dL (0.70-1.30); EST Glomerular Filtration Rate 42 mL/min (>60); Est Glom Filt Rate - Afr Amer 50 mL/min (>60); Estimated Creatinine Clearance 30.28 ml/min; Glucose 122 mg/dL (74-106); Potassium 4.3 mmol/L (3.5-5.1); Sodium Level 130 mmol/L (136-145); Troponin-I HS 9 pg/mL (3.0-78.0)
[2024-01-18 10:22] LABS: BNP,B-Type NATRIURETIC PEPTIDE 59.7 pg/mL (0-100)
--- NOTE | 2024-01-18 10:23 | CT_ITS ---
STUDY: CT ABDOMEN AND PELVIS WITHOUT CONTRAST REASON FOR EXAM: Male, 88 years old. Abdominal pain. Patient has history of bladder and prostate cancer. RADIATION DOSAGE (If Supplied By Facility): CTDIvol = ( 8.6 ) mGy, DLP = ( 414.71 ) mGycm TECHNIQUE: Transaxial images were obtained from the dome of the diaphragm to the symphysis pubis without oral contrast, and without intravenous contrast. Sagittal and coronal images were reconstructed. Individualized dose optimization techniques were used for this CT. COMPARISON: Comparison is made with prior study dated October 29, 2023. FINDINGS: Stable mild increased interstitial markings at the lung bases suggestive of scarring. Coronary artery calcification. Normal liver. There are multiple gallstones. There are multiple benign calcified granulomata of the spleen. Normal pancreas. There is a small, circumscribed, smooth, low attenuation left adrenal mass, consistent with an adrenal adenoma. This measures 1.5 cm. Normal right adrenal gland. Normal right kidney. Normal left kidney. Normal visualized stomach. Normal small intestine. Normal colon. The appendix is visualized and appears normal. There is diffuse atherosclerotic calcification of the abdominal aorta and its major visceral branches, without a demonstrated aneurysm. Normal inferior vena cava. Normal retroperitoneum. Mild degree of bladder wall thickening. Surgical clips are seen in the region of the prostate suggestive of prior cholecystectomy. Normal abdominal wall. There are diffuse degenerative changes of the visualized lumbar spine. Status post right total hip replacement. There is evidence of a bony destruction along the medial aspect of the right superior pubic ramus with fracture. There is also destruction of the anterior aspect of the right inferior pubic ramus. Nondisplaced fracture of the right sacral wing. CT/Abdomen/Pelvis without Cont IMPRESSION: Scarring at the lung bases. Fracture of the right superior and inferior pubic rami with a possible metastatic deposit. Fracture through the right sacral wing. Status post right total hip replacement. Multiple small gallstones. Prior resection of the prostate. Electronically Signed: Julian Talamantes MD at 12:10 EDT ,
[2024-01-18 10:28] LABS: Bedside Glucose 118 mg/dL (74-106)
[2024-01-18 10:42] LABS: Color, Urine Yellow (Yellow); Glucose, Dipstick Normal (Normal); Ketone-Dipstick 5 mg/dl (Negative); Leukocyte Esterase-Dipstick 500 /ul (Negative); Nitrite-Dipstick Negative (Negative); Occult Blood-Urine 25 /ul (Negative); Protein-Dipstick 30 mg/dl (Negative); Urine Bilirubin Dipstick Negative (Negative); Urine Clarity Cloudy (Clear); Urine Urobilinogen Normal (Normal)
[2024-01-18 11:00] LABS: Amorphous Sediment 1+; Bacteria 1+ /hpf (None Seen); Mucous, Urine RARE /hpf (<or=2+); Red Blood Cells-Urine 0-5 SEEN /hpf (0-5); Squamous Epithelial Cells - UA 0-5 SEEN /hpf (0-5); White Blood Cells 25-50 SEEN /hpf (0-5)
[2024-01-18] MEDS: Ceftriaxone 1 GM/50 ML BAG IV (12:14)
--- NOTE | 2024-01-18 12:47 | PCM.HP.STD ---
[facility] - General General Date of Service: 01/18/24 Chief Complaint: Weakness HPI Narrative CELIA PRICE, is a 88 M who presents with weakness. This is a gentleman who is being actively treated for bladder cancer, baseline performance status is limited as he does use a walker and has had falls on occasion. He does have limitations because he had a prior right hip replacement and that limits his walking. But over the past couple days primarily, he has had increased weakness to the point where he can even lift his head off the bed, he has not eaten in about 48 hours. So patient presented to the emergency room for evaluation. Patient was stable in the emergency room but his labs show sodium 130, creatinine of 1.67 (with a baseline of around 1.1), calcium of 11.4 and a urinalysis that was a concern for urinary tract infection. Patient received IV fluids as well as ceftriaxone in the emergency room. After the IV fluids, it was noted by the patient as well as his that he was feeling better and actually able to lift his head off the bed. [facility] Medical History Loss of hearing Wears glasses Cancer Alcohol use Arthritis Walker as ambulation aid Bladder disease Low iron Easy bruising Fall Former smoker History of pain when walking History of echocardiogram History of stress test Cardiology follow-up encounter History of heart attack Atherosclerosis of coronary artery of [place] heart without angina pectoris RBBB (right bundle branch block) Hyperlipidemia Insomnia Osteopenia Home Medications ?Medication ?Instructions ?Recorded ?Last Taken ?Type aspirin 81 mg tablet,delayed 81 mg PO DAILY 03/26/23 11/15/23 History release (Adult Low Dose Aspirin) atorvastatin 20 mg tablet 20 mg PO QHS 03/26/23 01/15/24 History celecoxib 200 mg capsule 200 mg PO DAILY 03/26/23 01/15/24 History metoprolol succinate 25 mg 25 mg PO DAILY 03/26/23 01/15/24 History tablet,extended release 24 hr cholecalciferol (vitamin D3) 25 25 mcg PO DAILY 04/17/23 01/15/24 History mcg (1,000 unit) capsule coenzyme Q10 200 mg capsule 200 mg PO DAILY 04/17/23 01/15/24 History glucosamine HCl 1,500 mg tablet 1,200 mg PO DAILY 04/17/23 01/15/24 History lactobacillus combination no.9 4 4,000 mmu cells PO DAILY 04/17/23 01/15/24 History billion cell capsule (Adult 50 Plus Probiotic) multivitamin 1 tab PO DAILY 04/17/23 01/15/24 History losartan 50 mg tablet 50 mg PO DAILY #90 tabs 09/16/23 01/15/24 Rx krill 1,000 mg-omega-3 170 mg-dha 1 cap PO DAILY 11/17/23 11/16/23 History 50 mg-epa 80 vq-warhwh-kcmbm capsule (krill oil) Allergy/AdvReac Type Severity Reaction Status Date / Time codeine Allergy Unknown Unknown Verified 01/18/24 09:23 niacin Allergy Unknown itching Verified 01/18/24 09:23 Family History Father , 67 Heart disease Mother Hypertension CVA (cerebral vascular accident) Brother CAD (coronary artery disease) CABG Surgical History Hx of colonoscopy Hx of right cataract extraction Hx of left cataract extraction History of coronary artery stent placement (12/14/19) History of left heart catheterization History of prostatectomy History of total right hip replacement History of hernia repair Social History Smoking Status: Former smoker alcohol intake: current alcohol intake frequency: holidays/special occasions only caffeine: Yes Type: coffee Number of servings: 4 ROS ROS Narrative He has developed wound on his backside that his has been tending to. All review of systems were negative except as mentioned above in the history of present illness and the other review of systems. Vital Signs Vital Signs Vital Signs: 01/18/24 09:24 01/18/24 10:07 01/18/24 10:23 Temperature 36.3 C L Temperature Source Temporal Pulse Rate 99 75 Respiratory Rate 18 18 Respiratory Pattern Normal Blood Pressure 151/134 H 120/57 L Blood Pressure Mean 139 78 Pulse Ox 97 95 Oxygen Delivery Method Room Air Room Air 01/18/24 10:27 01/18/24 11:10 01/18/24 12:00 Temperature 36.4 C L 36.4 C L 36.6 C Temperature Source Temporal Temporal Temporal Pulse Rate 81 82 74 Respiratory Rate 18 17 18 Respiratory Pattern Blood Pressure 120/57 L 106/60 111/57 L Blood Pressure Mean 78 75 75 Pulse Ox 95 96 96 Oxygen Delivery Method Room Air Room Air Room Air 01/18/24 12:00 01/18/24 12:09 Temperature 36.4 C L Temperature Source Pulse Rate 79 65 Respiratory Rate 18 18 Respiratory Pattern Blood Pressure 111/57 L 111/57 L Blood Pressure Mean 75 75 Pulse Ox 94 94 Oxygen Delivery Method Room Air Weight Weight: 68.7 kg Body Mass Index (BMI) 21.7 Physical Exam Const alert and no apparent distress Constitutional Narrative: Pleasant. Slow to respond but appropriate and speech comprehensible. HEENT normocephalic and head/scalp atraumatic HEENT Narrative: Mallampati 1. Mucous membranes moist. Eyes PERRL and EOMs intact bilaterally Eyes Narrative: No icterus Neck no lymphadenopathy Resp normal respiratory effort, no retractions, no use of accessory muscles and clear to auscultation bilaterally Cardio regular rate, regular rhythm, S1 normal heart sound and S2 normal heart sound GI normal to inspection, nondistended, normoactive bowel sounds, soft to palpation, non-tender and non-distended Extremity normal to inspection and no clubbing, cyanosis or edema Skin Skin Narrative: Stage II coccyx decubitus ulcer. No surrounding erythema or any discharge that I can appreciate. Neuro Neuro Narrative: Limited strength in his right but that is his known bad hip. Does have some tremulousness when he is sitting up and attempting to grab the rails. He actually was able to grab the side rails. Sensorium / Orientation: awake and alert Psych affect normal Results Lab / Micro Data Attestation: I reviewed the patient's lab results. 01/18/24 09:46 01/18/24 09:46 Labs: Laboratory Results - last 24 hr 01/18/24 09:46: WBC 5.6, RBC 4.45 L, Hgb 12.6 L, Hct 38.7 L, MCV 87.0, MCH 28.3, MCHC 32.6, RDW Std Deviation 42.7, RDW Coeff of Daniela 13.5, Plt Count 247, MPV 10.3, Immature Gran % (Auto) 0.500, Neut % (Auto) 76.2 H, Lymph % (Auto) 11.2 L, [place] % (Auto) 11.2 H, Eos % (Auto) 0.2, Baso % (Auto) 0.7, Absolute Neuts (auto) 4.2, Absolute Lymphs (auto) 0.62 L, Nucleated RBC % 0, Sodium 130 L, Potassium 4.3, Chloride 97 L, Carbon Dioxide 26.0, Anion Gap 7, BUN 41 H, Creatinine 1.67 H, Estim Creat Clear Calc 30.28, Est GFR (MDRD) Af Amer 50 L, Est GFR (MDRD) Non-Af 42 L, BUN/Creatinine Ratio 24.6 H, Glucose 122 H, Calcium 11.4 H, Troponin I High Sens 9, B-Natriuretic Peptide 59.7 01/18/24 10:07: POC Glucose 118 H 01/18/24 10:34: Urine Color Yellow, Urine Clarity Cloudy, Urine pH 5.0, Ur Specific [place] 1.020, Urine Protein 30 H, Urine Glucose (UA) Normal, Urine Ketones 5 H, Urine Occult Blood 25 H, Urine Nitrite Negative, Urine Bilirubin Negative, Urine Urobilinogen Normal, Ur Leukocyte Esterase 500 H, Urine RBC 0-5 SEEN, Urine WBC 25-50 SEEN, Ur Squamous Epith Cells 0-5 SEEN, Amorphous Sediment 1+, Urine Bacteria 1+, Urine Mucus RARE EKG Initial EKG: Attestation: I personally reviewed and interpreted this EKG as follows: Prior EKG tracings: available for review EKG Rhythm Intrepretation: Sinus Rhythm (Right bundle branch block) Imaging Radiology Impression Chest X-Ray 01/18/24 10:03 IMPRESSION: Elevation of the left hemidiaphragm. Increased interstitial markings at the lung bases suggestive basilar scarring. Electronically Signed: Julian Talamantes MD at 10:17 EDT , Abdomen/Pelvis CT 01/18/24 10:23 IMPRESSION: Scarring at the lung bases. Fracture of the right superior and inferior pubic rami with a possible metastatic deposit. Fracture through the right sacral wing. Status post right total hip replacement. Multiple small gallstones. Prior resection of the prostate. Electronically Signed: Julian Talamantes MD at 12:10 EDT , Assessment & Plan Assessment/Plan (1) ADRIAN (acute kidney injury): (2) UTI (urinary tract infection): (3) Debility: PLAN: Plan Acute kidney injury Likely prerenal azotemia secondary to dehydration. Patient has not been eating or drinking much over the past 48 hours or so. Will continue with IV fluids. If no improvement, consider further urine studies, renal ultrasound and/or nephrology consultation. Hold the following: Celecoxib, losartan Urinary tract infection Sure if true infection or not or if just due to his dehydration. He did receive ceftriaxone in emergency room. Will continue ceftriaxone floor. Follow-up urine cultures. Debility Certainly contributed by the dehydration and possible urinary tract infection Patient does use a walker at bedside. Patient's tends to him at home but is unable to help him adequately given his acute issues. Plan is for physical Occupational Therapy to evaluate him. Case management to assist with disposition Told them both that his gradual overall debility may related with his age but may be consideration to see neurology as outpatient to see if he has some other underlying cause of his abilities such as Parkinson's. Patient does not have any clear obvious parkinsonism on my evaluation though he does have some tremors when he was trying to grab the hand rails. Bladder cancer Undergoing BCG treatment Follow-up with urology/oncology. Chronic conditions Hypertension: Losartan to be held for the acute kidney injury for now. Continue with metoprolol succinate. VTE prophylaxis with enoxaparin. Advance care planning: Spent additional 16 minutes discussing CODE STATUS with he and his . Patient initially said he wanted to be full code but his immediately was questioning that saying her preference would be for no CPR. Discussed what is involved with CPR and the low likelihood of survival with both. Patient then agreed to DNR Comfort Care arrest. Charges/Coding Visit Charges Inpatient E&M: 31402 Init Hosp L3 Procedures Hospitalists Procedures: 08956 Advncd Care Plan 30 Min
--- NOTE | 2024-01-18 12:49 | NURSING ---
MED SURG JOPPERI UTI, ADRIAN
[2024-01-18] MEDS: 0.9% Normal Saline (1000mL) 1,000 ML 150 ML IV (14:31)
[2024-01-18] MEDS: 0.9% Saline Lock 10 ML Syringe IV (14:31)
--- NOTE | 2024-01-18 15:42 | WOUNDNOTE ---
wound photo: gill
--- NOTE | 2024-01-18 16:10 | CASEMGMT ---
Pt has directives in chart naming Darlin Nixon and Meaghan Rodriguez as agents. ERIK Stevens
[2024-01-18] MEDS: Atorvastatin Calcium 20 MG Tablet PO (21:34)
[2024-01-19 05:27] VITALS: BP 119/57; PULSE 96; RESP 18; TEMP 36.9; O2SAT 96
[2024-01-19 06:01] LABS: Absolute Lymphocyte Count 0.48 X10^3/uL (0.83-4.51); Absolute Neutrophil Count 3.7 X10^3/uL (2.0-7.7); Basophil# 0.03 X10^3/uL; Basophil% 0.6 % (0-1); Eosinophil# 0.01 X10^3/uL; Eosinophils% 0.2 % (0-5); Hematocrit 36.2 % (40-54); Hemoglobin 12.1 g/dL (13.0-16.5); Lymphocyte # 0.48 X10^3/ul (0.83-4.51); Mean Corp Hgb Conc 33.4 g/dL (32-36); Mean Corpuscular Volume 86.8 fL (80-94); Mean Platelet Vol. 10.8 fl (6.2-12.0); Monocyte# 0.57 X10^3/uL; Monocyte% 11.8 % (0-10); NRBC Flagged by Analyzer 0 % (0-5); Neutrophil # 3.71 X10^3/uL (2.7-7.7); POSITIVE DIFFERENTIAL YES; Platelet Count 207 K/mm3 (150-450); RBC Distribution Width CV 13.4 % (11.6-14.6); RBC Distribution Width SD 42.6 fl (35.1-43.9); Red Blood Count 4.17 M/mm3 (4.6-6.2); White Blood Count 4.8 K/mm3 (4.4-11.0)
[2024-01-19 06:49] LABS: Anion Gap 5 (5-15); BUN 31 mg/dL (7-18); BUN/Creat Ratio 24.8 RATIO (10-20); Calcium,Total 10.3 mg/dL (8.5-10.1); Chloride 101 mmol/L (98-107); Creatinine, Serum 1.25 mg/dL (0.70-1.30); EST Glomerular Filtration Rate 58 mL/min (>60); Est Glom Filt Rate - Afr Amer 70 mL/min (>60); Estimated Creatinine Clearance 38.95 ml/min; Glucose 114 mg/dL (74-106); Potassium 4.1 mmol/L (3.5-5.1); Sodium Level 133 mmol/L (136-145); Thyroid Stim Hormone (TSH) 3.29 uIU/mL (0.358-3.74)
--- NOTE | 2024-01-19 07:27 | PCM.PN.HOSP ---
Reason for Visit Reason for Visit: Diagnoses Acute kidney failure, unspecified (01/18/24) Urinary tract infection, site not specified (01/18/24) Other malaise (01/18/24) Subjective Subjective Feels tired. Objective Data Objective Data Vital Signs: Vital Signs Temp Pulse Resp BP Pulse Ox O2 Del Method 36.9 C 96 18 119/57 L 96 Room Air 01/19/24 05:27 01/19/24 05:27 01/19/24 05:27 01/19/24 05:27 01/19/24 05:27 01/19/24 05:27 Oxygen Delivery Method Room Air Weight: 66.134 kg Body Mass Index (BMI) 20.9 Intake & Output: Intake and Output for Last 24 Hours 01/17/24 01/18/24 01/19/24 23:59 23:59 23:59 Intake Total 1750 / 1750 Output Total 600 / 600 Balance 1750 / 1750 -600 / -600 Medical Nutrition Assessment Dietitian: Malnutrition Criteria Met Start: 01/18/24 14:36 Freq: Status: Active Protocol: Document 01/18/24 14:36 SLA (Rec: 01/18/24 14:36 SLA [email or web address]) Nutrition Malnutrition Evidence of Malnutrition Exists Yes Malnutrition (severe): Acute Illness/Injury Evidenced By Suboptimal Energy Intake ( Severe),Weight Loss (Severe) Clinical Problem Acute Disease or Injury Related Malnutrition Etiology related to bladder cancer and chemo tx causing pt to have inadequate energy intake Signs/Symptoms as evidenced by 6% 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 Lab / Micro Data 01/19/24 05:27 01/19/24 05:27 Labs: Laboratory Results - last 24 hr 01/18/24 09:46: WBC 5.6, RBC 4.45 L, Hgb 12.6 L, Hct 38.7 L, MCV 87.0, MCH 28.3, MCHC 32.6, RDW Std Deviation 42.7, RDW Coeff of Daniela 13.5, Plt Count 247, MPV 10.3, Immature Gran % (Auto) 0.500, Neut % (Auto) 76.2 H, Lymph % (Auto) 11.2 L, [place] % (Auto) 11.2 H, Eos % (Auto) 0.2, Baso % (Auto) 0.7, Absolute Neuts (auto) 4.2, Absolute Lymphs (auto) 0.62 L, Nucleated RBC % 0, Sodium 130 L, Potassium 4.3, Chloride 97 L, Carbon Dioxide 26.0, Anion Gap 7, BUN 41 H, Creatinine 1.67 H, Estim Creat Clear Calc 30.28, Est GFR (MDRD) Af Amer 50 L, Est GFR (MDRD) Non-Af 42 L, BUN/Creatinine Ratio 24.6 H, Glucose 122 H, Calcium 11.4 H, Troponin I High Sens 9, B-Natriuretic Peptide 59.7 01/18/24 10:07: POC Glucose 118 H 01/18/24 10:34: Urine Color Yellow, Urine Clarity Cloudy, Urine pH 5.0, Ur Specific Converse 1.020, Urine Protein 30 H, Urine Glucose (UA) Normal, Urine Ketones 5 H, Urine Occult Blood 25 H, Urine Nitrite Negative, Urine Bilirubin Negative, Urine Urobilinogen Normal, Ur Leukocyte Esterase 500 H, Urine RBC 0-5 SEEN, Urine WBC 25-50 SEEN, Ur Squamous Epith Cells 0-5 SEEN, Amorphous Sediment 1+, Urine Bacteria 1+, Urine Mucus RARE 01/19/24 05:27: WBC 4.8, RBC 4.17 L, Hgb 12.1 L, Hct 36.2 L, MCV 86.8, MCH 29.0, MCHC 33.4, RDW Std Deviation 42.6, RDW Coeff of Daniela 13.4, Plt Count 207, MPV 10.8, Immature Gran % (Auto) 0.400, Neut % (Auto) 77.0 H, Lymph % (Auto) 10.0 L, Mont[place] % (Auto) 11.8 H, Eos % (Auto) 0.2, Baso % (Auto) 0.6, Absolute Neuts (auto) 3.7, Absolute Lymphs (auto) 0.48 L, Nucleated RBC % 0, Sodium 133 L, Potassium 4.1, Chloride 101, Carbon Dioxide 27.0, Anion Gap 5, BUN 31 H, Creatinine 1.25, Estim Creat Clear Calc 38.95, Est GFR (MDRD) Af Amer 70, Est GFR (MDRD) Non-Af 58 L, BUN/Creatinine Ratio 24.8 H, Glucose 114 H, Calcium 10.3 H, TSH 3.29 Radiography Diagnostic Testing: Radiology Impression Chest X-Ray 01/18/24 10:03 IMPRESSION: Elevation of the left hemidiaphragm. Increased interstitial markings at the lung bases suggestive basilar scarring. Electronically Signed: Julian Talamantes MD at 10:17 EDT , Abdomen/Pelvis CT 01/18/24 10:23 IMPRESSION: Scarring at the lung bases. Fracture of the right superior and inferior pubic rami with a possible metastatic deposit. Fracture through the right sacral wing. Status post right total hip replacement. Multiple small gallstones. Prior resection of the prostate. Electronically Signed: Julian Talamantes MD at 12:10 EDT , Physical Exam Const alert and no apparent distress Constitutional Narrative: up in chair HEENT head/scalp atraumatic and moist oral mucous membranes Resp normal respiratory effort, no retractions, no use of accessory muscles and clear to auscultation bilaterally Cardio regular rate, regular rhythm, S1 normal heart sound and S2 normal heart sound GI normal to inspection, nondistended, normoactive bowel sounds and soft to palpation Neuro Sensorium / Orientation: awake and alert Assessment & Plan Assessment/Plan (1) ADRIAN (acute kidney injury): (2) UTI (urinary tract infection): (3) Debility: PLAN: Plan Acute kidney injury Resolved Likely prerenal azotemia secondary to dehydration. Patient has not been eating or drinking much over the past 48 hours or so. Continue to hold Celecoxib, losartan. Urinary tract infection I'm not sure if true infection or not or if just due to his dehydration. He did receive ceftriaxone in emergency room. Will continue ceftriaxone floor. Follow-up urine cultures. Debility Certainly contributed by the dehydration and possible urinary tract infection Patient does use a walker at bedside. Patient's tends to him at home but is unable to help him adequately given his acute issues. Plan is for physical Occupational Therapy to evaluate him. Case management to assist with disposition Told them both that his gradual overall debility may related with his age but may be consideration to see neurology as outpatient to see if he has some other underlying cause of his abilities such as Parkinson's. Patient does not have any clear obvious parkinsonism on my evaluation though he does have some tremors when he was trying to grab the hand rails. Bladder cancer Undergoing BCG treatment Follow-up with urology/oncology. Chronic conditions Hypertension: Losartan to be held for the acute kidney injury for now. Continue with metoprolol succinate. VTE prophylaxis with enoxaparin. Code: DNRCCA Charges/Coding Visit Charges Inpatient E&M: 37105 Subs Hosp L2
[2024-01-19 08:02] VITALS: BP 104/71; PULSE 97; RESP 16; TEMP 37.3; O2SAT 96
[2024-01-19] MEDS: Multivitamins,Therapeutic Tablet 1 TABLET PO (08:21)
--- NOTE | 2024-01-19 09:45 | CASEMGMT ---
Addendum entered by Claudette Austin 01/19/24 14:03: CHEKO TREVIZO into pt room, pt not present and pt lying in bed with eyes closed. Original Note: CHEKO TREVIZO Assessment: Face to Face with pt for initial transition planning/care coordination assessment. CHEKO TREVIZO introduced self and role at [facility], pt voices understanding and consents to assessment. Pt is A&O x3 and answers all questions appropriately at this time, although very slow. Care providers, pharmacy, and demographics verified/updated. Admitting Dx: ADRIAN, hypercalcemia, FTT PCP:Zahraa Specialists:Pt unsure at this time. [facility] Benef[facility]: yes LNOK: Darlin Nixon, Living Arrangements: Pt lives with in a single story home with 3 steps to enter with a rail. Pt reports he is I in ADL's and his performs IADL's. Pt denies concerns at home. Transportation: Pt drives self and denies concerns with transportation. DME:walker, pt reports his bathroom is being redone currently. HHC/SNF: Denies hx of Pt states no concerns with going home at time of dc. Pt states he wants to go back home and paint his kitchen. Pt states he feels he will be able to. Asked pt how he thought his therapy session went today. He states it went well. Pt states his strength is not where it normally is. He denies need for s/t therapy in a facility or any home health. Pt states his will be in today. RN JOSELINE or FORREST will discuss with pt and dc plan as pt went 5 feet with PT this date. Pt is agreeable to this. Pt reports he has a wound to his buttocks which his cares for. Pt moving in chair frequently and wincing, updated pt nurse. Pt states no further concerns/needs. CM to follow. Advised pt to ask CM if any further question/concerns/needs arise, voices understanding. Pt Goal: Home Plan: TBD pending therapy progress and course of hospitalization Herman STILL CM
[2024-01-19] MEDS: Ceftriaxone 1 GM/50 ML BAG IV (10:42)
[2024-01-19 10:43] VITALS: PULSE 97
[2024-01-19] MEDS: Metoprolol(XL)Succ 25 MG Tablet PO (10:43)
[2024-01-19] MEDS: Enoxaparin 40 MG/0.4 ML Syringe SC (10:43)
[2024-01-19] MEDS: Lactobacillis Acidophilus 1 CAP PO (10:43)
[2024-01-19] MEDS: Aspirin E.C. 81 MG Tablet PO (10:43)
[2024-01-19 14:53] VITALS: BP 103/58; PULSE 89; RESP 16; TEMP 37.2; O2SAT 99
[2024-01-19 21:23] VITALS: BP 106/55; PULSE 93; RESP 18; TEMP 36.7; O2SAT 94
[2024-01-19] MEDS: 0.9% Saline Lock 10 ML Syringe IV (21:25)
[2024-01-19] MEDS: Ensure Plus High Protein 120 ML LIQUID PO (21:25)
[2024-01-19] MEDS: Atorvastatin Calcium 20 MG Tablet PO (21:25)
[2024-01-20 04:43] VITALS: BP 125/58; PULSE 78; RESP 16; TEMP 37; O2SAT 92
--- NOTE | 2024-01-20 07:29 | PCM.PN.HOSP ---
Reason for Visit Reason for Visit: Diagnoses Acute kidney failure, unspecified (01/18/24) Urinary tract infection, site not specified (01/18/24) Other malaise (01/18/24) Subjective Subjective No new complaints. Objective Data Objective Data Vital Signs: Vital Signs Temp Pulse Resp BP Pulse Ox O2 Del Method 37.0 C 78 16 125/58 H 92 Room Air 01/20/24 04:43 01/20/24 04:43 01/20/24 04:43 01/20/24 04:43 01/20/24 04:43 01/20/24 04:43 Oxygen Delivery Method Room Air Weight: 66.134 kg Body Mass Index (BMI) 20.9 Intake & Output: Intake and Output for Last 24 Hours 01/18/24 01/19/24 01/20/24 23:59 23:59 23:59 Intake Total 1750 / 1750 170 / 170 Output Total 1300 / 1300 200 / 200 Balance 1750 / 1750 -1130 / -1130 -200 / -200 Medical Nutrition Assessment Dietitian: Malnutrition Criteria Met Start: 01/18/24 14:36 Freq: Status: Active Protocol: Document 01/18/24 14:36 SLA (Rec: 01/18/24 14:36 SLA [email or web address]) Nutrition Malnutrition Evidence of Malnutrition Exists Yes Malnutrition (severe): Acute Illness/Injury Evidenced By Suboptimal Energy Intake ( Severe),Weight Loss (Severe) Clinical Problem Acute Disease or Injury Related Malnutrition Etiology related to bladder cancer and chemo tx causing pt to have inadequate energy intake Signs/Symptoms as evidenced by 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 Lab / Micro Data 01/19/24 05:27 01/19/24 05:27 Micro: Microbiology 01/18/24 10:34 Urine Catheter - Catheter Urine Culture - Preliminary Culture exhibits no growth. Physical Exam Const alert and no apparent distress Constitutional Narrative: weak. HEENT head/scalp atraumatic and moist oral mucous membranes Resp normal respiratory effort and no retractions Extremity normal to inspection Neuro Neuro Narrative: slow measured upper extremity movements. Assessment & Plan Assessment/Plan (1) ADRIAN (acute kidney injury): (2) UTI (urinary tract infection): (3) Debility: PLAN: Plan Acute kidney injury Resolved Likely prerenal azotemia secondary to dehydration. Patient has not been eating or drinking much over the past 48 hours or so. Continue to hold Celecoxib, losartan. Urinary tract infection I'm not sure if true infection or not or if just due to his dehydration. He did receive ceftriaxone in emergency room. Will continue ceftriaxone floor. Follow-up urine cultures. Debility Certainly contributed by the dehydration and possible urinary tract infection Patient does use a walker at bedside. Patient's tends to him at home but is unable to help him adequately given his acute issues. Plan for SNF upon discharge On admission I told them both that his gradual overall debility may related with his age but may be consideration to see neurology as outpatient to see if he has some other underlying cause of his abilities such as Parkinson's. Patient does not have any clear obvious parkinsonism on my evaluation though he does have some tremors when he was trying to grab the hand rails. Bladder cancer Undergoing BCG treatment Follow-up with urology/oncology. Chronic conditions Hypertension: Losartan to be held for the acute kidney injury for now. Continue with metoprolol succinate. VTE prophylaxis with enoxaparin. Code: DNRCCA Disposition: plan on SNF. Medically stable for discharge. Charges/Coding Visit Charges Inpatient E&M: 70240 Subs Hosp L2
[2024-01-20 09:59] VITALS: BP 123/59; PULSE 94; RESP 16; TEMP 36.8; O2SAT 94
[2024-01-20 10:11] VITALS: PULSE 94
[2024-01-20] MEDS: Aspirin E.C. 81 MG Tablet PO (10:11)
[2024-01-20] MEDS: Metoprolol(XL)Succ 25 MG Tablet PO (10:11)
[2024-01-20] MEDS: Lactobacillis Acidophilus 1 CAP PO (10:11)
[2024-01-20] MEDS: Enoxaparin 40 MG/0.4 ML Syringe SC (10:12)
[2024-01-20] MEDS: Multivitamins,Therapeutic Tablet 1 TABLET PO (10:12)
[2024-01-20] MEDS: Ensure Plus High Protein 120 ML LIQUID PO (10:15)
[2024-01-20] MEDS: Ceftriaxone 1 GM/50 ML BAG IV (12:36)
--- NOTE | 2024-01-20 12:55 | CASEMGMT ---
Social Work- SW met with pt , Darlin, who has some concerns about pt rapid decline. Pt states that pt has lost 15# in two weeks and is refusing to eat or drink at home and often seems to have trouble swallowing water. Pt states that pt at baseline has no bladder control, but has increasingly been unable to pull pants up/down. Pt states that pt has been undergoing chemotherapy for bladder cancer, but it is reported by that it was recently advised by oncologist that treatments should be stopped due to the impact treatments have been having on pt. 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 Pt states that she would like to speak o physician to confirm or refute this. Pt states that pt feel twice in the last week; once in the tub where the squad had to come and assist in getting pt up and once in which was able to get pt up on her won. Pt states a steady decline in ambulation. Pt states that pt's PCP and hand sizer have suspected nothing and noted no changes until this point. Pt reports that they are having bathroom modifications completed next week. Pt reports that they have been for 66 years and she just wants him to be comfortable and what is best for him. Pt would be agreeable to hospice if it was determined to be appropriate, as her daughter lives in [place] and the only family close by are grandsons in [place]. Pt states they lived in [place] for 8 years near daughter after pt initial prostrate cancer diagnosis and moved back one year ago because they thought pt health had improved. Pt is agreeable to SNF if pt is rehab appropriate. A list of SNF providers including quality and resource use data and consistent with the patient?s preferred geographic region, medical needs, and insurance network were provided from the [facility] Guide. PT would like [facility] as [facility] and will look over list for additional options. FORREST reached out to to advise that pt would like to discuss pt changes and care. advised that he will meet with pt . FORREST made referral to TCU. ERIK Stevens
[2024-01-20 14:51] VITALS: BP 92/47; PULSE 75; RESP 16; TEMP 36.8; O2SAT 94
--- NOTE | 2024-01-20 15:47 | CASEMGMT ---
Social Work- SW received acceptance for pt at [facility] for tomorrow. SW advised pt and . ERIK Stevens
[2024-01-20 21:59] VITALS: BP 116/61; PULSE 82; RESP 18; TEMP 36.9; O2SAT 94
[2024-01-20] MEDS: 0.9% Saline Lock 10 ML Syringe IV (22:01)
[2024-01-20] MEDS: Atorvastatin Calcium 20 MG Tablet PO (22:02)
[2024-01-21 02:08] VITALS: BP 122/72; PULSE 81; RESP 18; TEMP 36.7; O2SAT 96
[2024-01-21 08:05] VITALS: BP 111/69; PULSE 86; RESP 18; TEMP 36.4; O2SAT 93
[2024-01-21] MEDS: Enoxaparin 40 MG/0.4 ML Syringe SC (08:10)
[2024-01-21] MEDS: Aspirin E.C. 81 MG Tablet PO (08:10)
[2024-01-21] MEDS: Ceftriaxone 1 GM/50 ML BAG IV (08:10)
[2024-01-21] MEDS: Multivitamins,Therapeutic Tablet 1 TABLET PO (08:10)
[2024-01-21] MEDS: Lactobacillis Acidophilus 1 CAP PO (08:10)
--- NOTE | 2024-01-21 09:58 | TREXTCAR_ITS ---
Diet Diet Order/Speech Therapy: 01/18/24 13:27 Diet: Regular - General Food consistency:: Regular Liquid Consistency:: Regular/Thin Is pt able to select menu?: Yes Routine Orders/Code Status Code Status: DNRCC-A Wound(s) coccyx: Wound Type: Pressure Injury Therapies Weight Bearing: Full weight bearing Physical Therapy: Eval and Treat Occupational Therapy: Eval and Treat Speech Therapy: Eval and Treat Problem/Diagnosis (1) ADRIAN (acute kidney injury): Status: Acute Code(s): N17.9 - Acute kidney failure, unspecified (2) UTI (urinary tract infection): Status: Acute Code(s): N39.0 - Urinary tract infection, site not specified (3) Debility: Status: Acute Code(s): R53.81 - Other malaise Plan Acute kidney injury * Resolved * Likely prerenal azotemia secondary to dehydration. Patient has not been eating or drinking much over the past 48 hours or so. * Continue to hold Celecoxib, losartan. Urinary tract infection * I'm not sure if true infection or not or if just due to his dehydration. * He did receive ceftriaxone in emergency room. Will continue ceftriaxone floor. * Follow-up urine cultures. Debility * Certainly contributed by the dehydration and possible urinary tract infection * Patient does use a walker at bedside. Patient's tends to him at home but is unable to help him adequately given his acute issues. * Plan for SNF upon discharge * On admission I told them both that his gradual overall debility may related with his age but may be consideration to see neurology as outpatient to see if he has some other underlying cause of his abilities such as Parkinson's. Patient does not have any clear obvious parkinsonism on my evaluation though he does have some tremors when he was trying to grab the hand rails. Bladder cancer * Undergoing BCG treatment * Follow-up with urology/oncology. Chronic conditions * Hypertension: Losartan to be held for the acute kidney injury for now. Continue with metoprolol succinate. VTE prophylaxis with enoxaparin. Code: DNRCCA Disposition: plan on SNF. Medically stable for discharge. Allergies/Procedures Done in Hospital Allergies codeine Allergy (Unknown, Verified 01/18/24 09:23) Unknown niacin Allergy (Unknown, Verified 01/18/24 09:23) itching Procedures: None Type of Care/Length of Stay Estimated LOS: Convalescent Care Less Than 30 days Type of Care Needed: Skilled Rehab Potential: Fair Prognosis: Fair Additional Orders/Day of Discharge Day of Discharge: 01/21/24 Dietary and Speech Recommendations Dietitian Recommendations/Changes: Continue regular diet at meals Will d/c 4 oz ensure plus high protein 4x/day w/ medpass per pt request Discharge Plan Admission Admit Date/Time: 01/18/24 12:09 Primary Reason for Your Visit: ADRIAN Attending Provider: Stephan Fry Primary Care Provider: Kassie Vital Instructions Additional Instructions / Restrictions: Follow-up with a facility for evaluation for movement disorder at your earliest convenience. [facility] [phone]. [facility] Parkinson's [facility] Movement Disorders [phone]. [facility] [phone]. Discharge Orders/Prescriptions Prescriptions: New acetaminophen 325 mg Tablet 650 mg PO Q6H PRN PRN (Reason: Pain 1-10 Or Fever>100.7) Qty: 0 0RF nitrofurantoin macrocrystal 100 mg capsule 100 mg PO BID Qty: 2 0RF Rx Instructions: must administer with a meal/food Continued aspirin [Adult Low Dose Aspirin] 81 mg tablet,delayed release (DR/EC) 81 mg PO DAILY atorvastatin 20 mg tablet 20 mg PO QHS celecoxib 200 mg capsule 200 mg PO DAILY metoprolol succinate 25 mg tablet extended release 24 hr 25 mg PO DAILY glucosamine HCl 1,500 mg tablet 1,200 mg PO DAILY Rx Instructions: administer with a meal multivitamin Tablet 1 tab PO DAILY Adult 50 Plus Probiotic 4 billion cell capsule 4,000 mmu cells PO DAILY Rx Instructions: administer with a meal cholecalciferol (vitamin D3) 25 mcg (1,000 unit) capsule 25 mcg PO DAILY coenzyme Q10 200 mg capsule 200 mg PO DAILY krill oil [id number] mg capsule 1 cap PO DAILY losartan 50 mg tablet 50 mg PO DAILY Qty: 90 3RF Referrals / Follow Up: Kassie Vital MD [Primary Care Provider] - Within 2 Weeks Disposition Disposition (needs filled in before D/C Order can be placed): [facility]
--- NOTE | 2024-01-21 10:02 | DS.PCM_ITS ---
Providers Date of Admission: 01/18/24 Primary Care Physician: Kassie Vital MD Consultations 01/18/24 13:27 Consult: Onc/Wound/central sterile tech Routine Comment: Reason For Visit: ADRIAN, HYPERCALCEMIA. FTT. Diagnosis Discharge Diagnosis (1) ADRIAN (acute kidney injury): Status: Acute Code(s): N17.9 - Acute kidney failure, unspecified (2) UTI (urinary tract infection): Status: Acute Code(s): N39.0 - Urinary tract infection, site not specified (3) Debility: Status: Acute Code(s): R53.81 - Other malaise Plan Acute kidney injury * Resolved * Likely prerenal azotemia secondary to dehydration. Patient has not been eating or drinking much over the past 48 hours or so. * Continue to hold Celecoxib, losartan. Urinary tract infection * I'm not sure if true infection or not or if just due to his dehydration. * He did receive ceftriaxone in emergency room. Will continue ceftriaxone floor. * Follow-up urine cultures. Debility * Certainly contributed by the dehydration and possible urinary tract infection * Patient does use a walker at bedside. Patient's tends to him at home but is unable to help him adequately given his acute issues. * Plan for SNF upon discharge * On admission I told them both that his gradual overall debility may related with his age but may be consideration to see neurology as outpatient to see if he has some other underlying cause of his abilities such as Parkinson's. Patient does not have any clear obvious parkinsonism on my evaluation though he does have some tremors when he was trying to grab the hand rails. Bladder cancer * Undergoing BCG treatment * Follow-up with urology/oncology. Chronic conditions * Hypertension: Losartan to be held for the acute kidney injury for now. Continue with metoprolol succinate. VTE prophylaxis with enoxaparin. Code: DNRCCA Disposition: plan on SNF. Medically stable for discharge. Medications at Discharge Home Medications aspirin 81 mg tablet,delayed release (Adult Low Dose Aspirin) 81 mg PO DAILY 03/26/23 atorvastatin 20 mg tablet 20 mg PO QHS 03/26/23 celecoxib 200 mg capsule 200 mg PO DAILY 03/26/23 metoprolol succinate 25 mg tablet,extended release 24 hr 25 mg PO DAILY 03/26/23 cholecalciferol (vitamin D3) 25 mcg (1,000 unit) capsule 25 mcg PO DAILY 04/17/23 coenzyme Q10 200 mg capsule 200 mg PO DAILY 04/17/23 glucosamine HCl 1,500 mg tablet 1,200 mg PO DAILY 04/17/23 lactobacillus combination no.9 4 billion cell capsule (Adult 50 Plus Probiotic) 4,000 mmu cells PO DAILY 04/17/23 multivitamin 1 tab PO DAILY 04/17/23 losartan 50 mg tablet 50 mg PO DAILY #90 tabs 09/16/23 krill 1,000 mg-omega-3 170 mg-dha 50 mg-epa 80 [id number]-[id number] capsule (krill oil) 1 cap PO DAILY 11/17/23 acetaminophen 325 mg tablet 650 mg (2 x 325 mg) PO Q6H PRN PRN Pain 1-10 Or Fever>100.7 #0 tabs 01/21/24 nitrofurantoin macrocrystal 100 mg capsule 100 mg PO BID #2 caps 01/21/24 Hospital Course Operations None Procedures None Summary of Care Provided Minutes Spent on Discharge: 33 Hospital Course: Patient presents with increased weakness. Patient had been weak, not eating for the preceding 2 days prior to admission. Patient was found to have acute kidney injury with a creatinine at 1.67. Abnormal urinalysis concerning for urinary tract infection. Patient was started on ceftriaxone as well as IV fluids. Urine culture came back showing an unusual organism. As patient received 4 days of ceftriaxone patient will just be discharged with 1 more day of nitrofurantoin. Patient is very debilitated at baseline and seems more advanced than just given his age. I told the and he is I am concerned about underlying neurodegenerative process and made recommendation for the patient to follow-up with a movement disorder specialist to see if he has an underlying movement disorder, such as Parkinson's or PSP. Patient will be discharged to [facility] facility in stable condition. Medical Records Data Medical Nutrition Assessment Dietitian: Malnutrition Criteria Met Start: 01/18/24 14:36 Freq: Status: Active Protocol: Document 01/20/24 12:29 [facility] (Rec: 01/20/24 12:29 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 Problem Recommendation Dietitian Recommendations/Changes Continue regular diet at meals Will d/c 4 oz ensure plus high protein 4x/day w/ medpass per pt request Weight / BMI Weight Weight: 66.134 kg Body Mass Index (BMI) 20.9 ABG / Lab / Microbiology Data 01/19/24 05:27 01/19/24 05:27 Microbiology: Microbiology 01/18/24 10:34 Urine Catheter - Catheter Urine Culture - Final Juliosusanna gilsusanna Meaningful Use Info Meaningful Use Meaningful Use Diagnoses (Choose all that apply): None applicable Ischemic Stroke Statin Dosing Therapy Reference: STATIN DOSE THERAPY REFERENCE: * Patients > 75 years receive moderate or high dose statin therapy. * Patients 75 years or YOUNGER should receive HIGH intensity statin dose unless contraindicated. You will be required to document reason for non-treatment if statin daily dose does not meet guidelines. HIGH DOSE STATIN THERAPY DAILY Atorvastatin > than or = to 40 mg Rosuvastatin > than or = to 20 mg Amlodipine + Atorvastatin > than or = to 2.5/40 mg Ezetimibe + Simvastatin 10/80 mg Simvastatin 80mg Discharge Plan Admission Admit Date/Time: 01/18/24 12:09 Primary Reason for Your Visit: ADRIAN Attending Provider: Stephan Fry Primary Care Provider: Kassie Vital Instructions Additional Instructions / Restrictions: Follow-up with a facility for evaluation for movement disorder at your earliest convenience. [facility] [phone]. [facility] Movement [facility] [phone]. [facility] [phone]. Discharge Orders/Prescriptions Prescriptions: New acetaminophen 325 mg Tablet 650 mg PO Q6H PRN PRN (Reason: Pain 1-10 Or Fever>100.7) Qty: 0 0RF nitrofurantoin macrocrystal 100 mg capsule 100 mg PO BID Qty: 2 0RF Rx Instructions: must administer with a meal/food Continued aspirin [Adult Low Dose Aspirin] 81 mg tablet,delayed release (DR/EC) 81 mg PO DAILY atorvastatin 20 mg tablet 20 mg PO QHS celecoxib 200 mg capsule 200 mg PO DAILY metoprolol succinate 25 mg tablet extended release 24 hr 25 mg PO DAILY glucosamine HCl 1,500 mg tablet 1,200 mg PO DAILY Rx Instructions: administer with a meal multivitamin Tablet 1 tab PO DAILY Adult 50 Plus Probiotic 4 billion cell capsule 4,000 mmu cells PO DAILY Rx Instructions: administer with a meal cholecalciferol (vitamin D3) 25 mcg (1,000 unit) capsule 25 mcg PO DAILY coenzyme Q10 200 mg capsule 200 mg PO DAILY krill oil 1,410-800-61-80 mg capsule 1 cap PO DAILY losartan 50 mg tablet 50 mg PO DAILY Qty: 90 3RF Referrals / Follow Up: Kassie Vital MD [Primary Care Provider] - Within 2 Weeks Disposition Disposition (needs filled in before D/C Order can be placed): Care Home Facility Charges/Coding Visit Charges Inpatient E&M: 53097 Disch Hosp >30min
--- NOTE | 2024-01-21 10:36 | CASEMGMT ---
Social Work- SW received discharge paperwork from physician. Bedside nurse, Carin, notified. [facility] notified and paperwork faxed over. Pt and pt advised. SW provided education on social work services in TCU and physician who oversees floor, as pt had some questions and concerns. Pt and pt agreeable to discharge plans. Disposition: TCU ERIK Stevens
--- NOTE | 2024-01-21 11:40 | PHA.DC.MR.R ---
Pharmacy [place] Med Reconciliation Pharmacy Service has performed discharge medication reconciliation for this patient upon transfer to TCU The patient's discharge medication list was reviewed for discrepancies and discrepancies were resolved. Medications at Discharge Home Medications aspirin 81 mg tablet,delayed release (Adult Low Dose Aspirin) 81 mg PO DAILY 03/26/23 atorvastatin 20 mg tablet 20 mg PO QHS 03/26/23 celecoxib 200 mg capsule 200 mg PO DAILY 03/26/23 metoprolol succinate 25 mg tablet,extended release 24 hr 25 mg PO DAILY 03/26/23 cholecalciferol (vitamin D3) 25 mcg (1,000 unit) capsule 25 mcg PO DAILY 04/17/23 coenzyme Q10 200 mg capsule 200 mg PO DAILY 04/17/23 glucosamine HCl 1,500 mg tablet 1,200 mg PO DAILY 04/17/23 lactobacillus combination no.9 4 billion cell capsule (Adult 50 Plus Probiotic) 4,000 mmu cells PO DAILY 04/17/23 multivitamin 1 tab PO DAILY 04/17/23 losartan 50 mg tablet 50 mg PO DAILY #90 tabs 09/16/23 krill 1,000 mg-omega-3 170 mg-dha 50 mg-epa 80 [id number]-[id number] capsule (krill oil) 1 cap PO DAILY 11/17/23 acetaminophen 325 mg tablet 650 mg (2 x 325 mg) PO Q6H PRN PRN Pain 1-10 Or Fever>100.7 #0 tabs 01/21/24 nitrofurantoin macrocrystal 100 mg capsule 100 mg PO BID #2 caps 01/21/24
== END 2024-01-21 11:13 | disposition skilled nursing facility (03) | DRG 682 ==
LOC: ED 12:21 → MS3 14:51
PROVIDERS: Emergency Provider Emergency Medicine; PCP Family Medicine
DX: N17.9 Acute kidney failure, unspecified (principal); E43 Unspecified severe protein-calorie malnutrition; N39.0 Urinary tract infection, site not specified; L89.152 Pressure ulcer of sacral region, stage 2; R62.7 Adult failure to thrive; C67.9 Malignant neoplasm of bladder, unspecified; E86.0 Dehydration; E78.5 Hyperlipidemia, unspecified; E83.52 Hypercalcemia; I10 Essential (primary) hypertension; I25.10 Atherosclerotic heart disease of native coronary artery without angina pectoris; Z82.3 Family history of stroke; R53.81 Other malaise; R53.1 Weakness; Z79.1 Long term (current) use of non-steroidal anti-inflammatories (NSAID); Z87.891 Personal history of nicotine dependence; Z95.5 Presence of coronary angioplasty implant and graft; Z79.82 Long term (current) use of aspirin; Z66 Do not resuscitate; Z68.20 Body mass index [BMI] 20.0-20.9, adult
CPT/HCPCS: 36415; 71045; 74176; 80048; 81001; 82962; 83880; 84443; 84484; 85025; 87077; 87086; 87088; 93005; 97162; 97166; 97530; 97535; 97802; 99284; J7030; J7040; A4216

== ENCOUNTER 2024-01-21 11:35 | Inpatient (IN) | payer MEDICARE, BC, SELFPAY ==
[2024-01-21 11:35] VITALS: BP 110/53; PULSE 89; RESP 17; TEMP 36.9; O2SAT 94
[2024-01-21 12:01] VITALS: BMI 20.2
[2024-01-21 12:11] VITALS: BMI 20.2
--- NOTE | 2024-01-21 20:42 | HP.PCM_ITS ---
HPI - General General Date of Admission: 01/21/24 Date of Service: 01/21/24 Chief Complaint: Here for rehabilitation. HPI Narrative 01/18/2024 CELIA PRICE, is a 88 Male who presents to [facility] ED with weakness. Unable to care for self, not eating, not drinking. Moans in pain. CBC shows anemia, low platelets, BMP shows low sodium, high calcium. Troponin negative, BNP okay, EKG normal sinus rhythm, LAD, RBBB, negative for STEMI. Urinalysis c/w UTI. 01/18/2024 Admit to [facility]. IV fluids, Hold Losartan, Hold Furosemide, Hold Celebrex for ADRIAN. Ceftriaxone IV for UTI, urine culture pending. PT/OT Debility. Undergoing BCG treatment for bladder cancer. 01/19/2024 Feels tired. ADRIAN resolved, ADRIAN 2/2 dehydration. Ceftriaxone IV for UTI, urine culture pending. PT/OT for Debility, consider neurology evaluation for progressive weakness. 01/20/2024 No new complaints. Hold Celebrex, Hold Losartan for ADRIAN. Ceftriaxone IV for UTI. 01/21/2024 Urine culture growing 50,000 to 80,000 Kocuria Rosea, treated with PO Nitrofurantoin. 01/21/2024 Admit to TCU with debility, here for rehabilitation, strengthening, prior to discharge hme with . Nursing staff notified me resident appears to be dying, upon entering room, resident did exhibit O sign, but he woke up easily by verbal command. Will monitor closely for progressive decline, he does have bladder cancer after all, and if appropriate, refer to hospice. [facility] Medical History Loss of hearing Wears glasses Cancer Alcohol use Arthritis Walker as ambulation aid Bladder disease Low iron Easy bruising Fall Former smoker History of pain when walking History of echocardiogram History of stress test Cardiology follow-up encounter History of heart attack Atherosclerosis of coronary artery of ione heart without angina pectoris RBBB (right bundle branch block) Hyperlipidemia Insomnia Osteopenia Home Medications ?Medication ?Instructions ?Recorded ?Last Taken ?Type aspirin 81 mg tablet,delayed 81 mg PO DAILY heart health 03/26/23 01/21/24 History release (Adult Low Dose Aspirin) atorvastatin 20 mg tablet 20 mg PO QHS cholesterol 03/26/23 01/20/24 History celecoxib 200 mg capsule 200 mg PO DAILY pain 03/26/23 01/15/24 History metoprolol succinate 25 mg 25 mg PO DAILY heart 03/26/23 01/20/24 History tablet,extended release 24 hr cholecalciferol (vitamin D3) 25 25 mcg PO DAILY supplement 04/17/23 01/15/24 History mcg (1,000 unit) capsule coenzyme Q10 200 mg capsule 200 mg PO DAILY supplement 04/17/23 01/15/24 History glucosamine HCl 1,500 mg tablet 1,200 mg PO DAILY supplement 04/17/23 01/15/24 History lactobacillus combination no.9 4 4,000 mmu cells PO DAILY supplement 04/17/23 01/21/24 History billion cell capsule (Adult 50 Plus Probiotic) multivitamin 1 tab PO DAILY supplement 04/17/23 01/21/24 History losartan 50 mg tablet 50 mg PO DAILY blood prssure #90 09/16/23 01/15/24 Rx tabs krill 1,000 mg-omega-3 170 mg-dha 1 cap PO DAILY supplement 11/17/23 11/16/23 History 50 mg-epa 80 [id number]-rxwqrw-rdpau capsule (krill oil) acetaminophen 325 mg tablet 650 mg (2 x 325 mg) PO Q6H PRN PRN 01/21/24 Unknown Rx Pain 1-10 Or Fever>100.7 #0 tabs nitrofurantoin macrocrystal 100 mg 100 mg PO BID urinary infection #2 01/21/24 Unknown Rx capsule caps Allergy/AdvReac Type Severity Reaction Status Date / Time codeine Allergy Unknown Unknown Verified 01/18/24 09: niacin Allergy Unknown itching Verified 01/18/24 09:23 Family History Father , 67 Heart disease Mother Hypertension CVA (cerebral vascular accident) Brother CAD (coronary artery disease) CABG Surgical History Hx of colonoscopy Hx of right cataract extraction Hx of left cataract extraction History of coronary artery stent placement (12/14/19) History of left heart catheterization History of prostatectomy History of total right hip replacement History of hernia repair Social History (Updated 01/21/24 @ 20:[address] Russell Trevizo MD) household members: spouse Smoking Status: Former smoker alcohol intake: current alcohol intake frequency: holidays/special occasions only caffeine: Yes Type: coffee Number of servings: 4 ROS Constitutional Constitutional: Reports fatigue and weakness; Denies chills, fever(s) or weight gain ENT HEENT: Denies headache(s), nasal congestion or nasal discharge Cardiovascular Cardiovascular: Denies chest pain or palpitations Respiratory/Chest Respiratory/Chest: Denies cough, excessive phlegm production or shortness of breath with exertion Gastrointestinal Gastrointestinal: Denies abdominal pain, nausea or vomiting Genitourinary Genitourinary: Denies dysuria Musculoskeletal Musculoskeletal: Denies joint pain or joint swelling Integumentary Integumentary: Denies rash or wounds Neurologic Neurologic: Denies focal weakness, numbness or tingling Psychiatric Psychiatric: Denies anxiety, auditory hallucinations, depression, homicidal ideation or suicidal ideation Vital Signs Vital Signs Vital Signs: 01/21/24 11:35 01/21/24 13:00 Temperature 98.4 F Temperature Source Temporal Pulse Rate 89 Pulse Rhythm Regular Pulse Strength Normal (2+) Respiratory Rate 17 Respiratory Effort Normal Non-Labored Respiratory Depth Normal Respiratory Pattern Normal Blood Pressure 110/53 L Blood Pressure Mean 72 Blood Pressure Source Monitor Blood Pressure Position Semi-Fowlers Blood Pressure Location Right Arm Pulse Ox 94 Oxygen Delivery Method Room Air Room Air Weight Weight: 62.227 kg Body Mass Index (BMI) 20.2 Physical Exam Const alert General Appearance: cooperative HEENT normocephalic Eyes PERRL and EOMs intact bilaterally Neck supple, no JVD and no carotid bruits Resp normal respiratory effort, normal air movement and clear to auscultation bilaterally Cardio regular rate and regular rhythm GI normal to inspection, nondistended, normoactive bowel sounds, non-tender and non-distended Extremity normal capillary refill General Extremity: Negative for edema Skin no rashes or lesions noted General Skin Exam: no breakdown Psych affect normal Appearance: appropriate Assessment & Plan Assessment/Plan (1) Debility: (2) UTI (urinary tract infection): (3) ADRIAN (acute kidney injury): (4) Atherosclerosis of coronary artery of ione heart without angina pectoris: (5) Hyperlipidemia: (6) Osteoarthritis: (7) Vitamin D deficiency: (8) Bladder cancer: PLAN: Plan 88 year old male with below past medical history significant for bladder cancer, hospitalized for weakness 2/2 UTI, ADRIAN, admitted to TCU with debility, here for rehabilitation, strengthening, prior to discharge home with . * Debility - PT/OT. * Pain - Tylenol 1000mg q6 prn pain (1-10). * Bowel - senna/colace 1 tablet bid prn. * Adult immunization - Administer pneumonia vaccine, covid vaccine, flu vaccine as appropriate. * DVT prophylaxis - Lovenox 30mg sc daily. * Coronary artery disease - Metoprolol succinate 25mg daily, Losartan 50mg daily, Aspirin 81mg daily. * Hyperlipidemia - Atorvastatin 20mg qhs. * Osteoarthritis - Celebrex 200mg daily. * Vitamin D deficiency - D3 25mcg daily. * Hypertension - Metoprolol succinate 25mg daily, Losartan 50mg daily. * Nutrition - MVI 1 tablet daily. * Kocuria Rosea UTI - Nitrofurantoin 100mg bid thru 01/22/2024.
[2024-01-21] MEDS: Atorvastatin Calcium 20 MG Tablet PO (21:12)
[2024-01-21] MEDS: Nitrofurantoin Macrocrystals 100 MG Capsule PO (21:12)
[2024-01-22] MEDS: Enoxaparin 30 MG/0.3 ML Syringe SC (05:22)
[2024-01-22 06:11] LABS: Absolute Lymphocyte Count 0.48 X10^3/uL (0.83-4.51); Absolute Neutrophil Count 2.8 X10^3/uL (2.0-7.7); Basophil# 0.03 X10^3/uL; Basophil% 0.8 % (0-1); Eosinophil# 0.02 X10^3/uL; Eosinophils% 0.5 % (0-5); Hematocrit 37.2 % (40-54); Hemoglobin 12.2 g/dL (13.0-16.5); Lymphocyte # 0.48 X10^3/ul (0.83-4.51); Lymphocyte % 12.7 % (19-41); Mean Corp Hgb Conc 32.8 g/dL (32-36); Mean Corpuscular Hgb 28.3 pg (27.0-32.0); Mean Corpuscular Volume 86.3 fL (80-94); Mean Platelet Vol. 10.4 fl (6.2-12.0); Monocyte# 0.44 X10^3/uL; Monocyte% 11.6 % (0-10); NRBC Flagged by Analyzer 0 % (0-5); Neutrophil # 2.81 X10^3/uL (2.7-7.7); Neutrophil % 74.1 % (47-70); POSITIVE DIFFERENTIAL YES; Platelet Count 212 K/mm3 (150-450); RBC Distribution Width CV 13.3 % (11.6-14.6); RBC Distribution Width SD 41.6 fl (35.1-43.9); Red Blood Count 4.31 M/mm3 (4.6-6.2); White Blood Count 3.8 K/mm3 (4.4-11.0)
[2024-01-22 06:52] LABS: Anion Gap 7 (5-15); BUN 32 mg/dL (7-18); BUN/Creat Ratio 26.7 RATIO (10-20); Calcium,Total 10.8 mg/dL (8.5-10.1); Chloride 98 mmol/L (98-107); EST Glomerular Filtration Rate 61 mL/min (>60); Est Glom Filt Rate - Afr Amer 74 mL/min (>60); Estimated Creatinine Clearance 38.17 ml/min; Glucose 127 mg/dL (74-106); Potassium 4.1 mmol/L (3.5-5.1); Sodium Level 133 mmol/L (136-145)
--- NOTE | 2024-01-22 07:47 | PCM.PN.DRR ---
TCU RX Drug Regimen Review Subjective/Objective Subjective/Objective: Subjective: 88 YOM admitted to TCU on 01/21/24 s/p hospitalization secondary to weakness, UTI. Patient dose have a history of bladder cancer, received antibiotics for UTI while hospitalized. Admitted to TCU for rehabilitation and strengthening prior to discharge home with . Objective: Allergies codeine Allergy (Unknown, Verified 01/18/24 09:23) Unknown niacin Allergy (Unknown, Verified 01/18/24 09:23) itching Current Medications Generic Name Dose Route Start Last Admin Trade Name Freq PRN Reason Stop Dose Admin Acetaminophen 1,000 mg 01/21/24 20:56 Acetaminophen 500 Mg Tablet PO Q6H PRN PRN Pain Score 1-10 Aspirin 81 mg 01/22/24 10:00 Aspirin E.C. 81 Mg Tablet PO DAILY [facility] Atorvastatin Calcium 20 mg 01/21/24 22:00 01/21/24 21:12 Atorvastatin Calcium 20 Mg Tablet PO 20 mg QHS [facility] Administration Celecoxib 200 mg 01/22/24 10:00 Celecoxib 200 Mg Capsule PO DAILY [facility] Cholecalciferol 25 mcg 01/22/24 10:00 Cholecalciferol (Vit D3) 25 Mcg Tablet (1,000 Units) PO DAILY [facility] Enoxaparin Sodium 30 mg 01/22/24 06:00 01/22/24 05:22 Enoxaparin 30 Mg/0.3 Ml Syringe SC 30 mg DAILY@0600 [facility] Administration Losartan Potassium 50 mg 01/22/24 10:00 Losartan Potassium 50 Mg Tablet PO DAILY [facility] Protocol Metoprolol Succinate 25 mg 01/22/24 10:00 Metoprolol(Xl)Succ 25 Mg Tablet PO DAILY [facility] Protocol Multivitamins 1 tablet 01/22/24 08:00 [facility]ivitamins,Therapeutic [facility] Nitrofurantoin Macrocrystals 100 mg 01/21/24 22:00 01/21/24 21:12 Nitrofurantoin Macrocrystals 100 Mg Capsule PO 01/22/24 10:01 100 mg BID [facility] Administration Senna/Docusate Sodium 1 tablet 01/21/24 20:56 Senna/Docusate Sodium 1 Tablet PO BID PRN PRN Constipation Tuberculin PPD 0.1 ml 01/29/24 10:00 Tuberculin,Purif.Prot.Deriv. 50 Tu/Ml Vial ID 01/29/24 10:01 X1 ONE Tuberculin PPD 0.1 ml 01/22/24 10:00 Tuberculin,Purif.Prot.Deriv. 50 Tu/Ml Vial ID 01/22/24 10:01 X1 ONE Problem List Bladder cancer (Acute) Vitamin D deficiency (Acute) Osteoarthritis (Acute) Debility (Acute) UTI (urinary tract infection) (Acute) ADRIAN (acute kidney injury) (Acute) Atherosclerosis of coronary artery of [place] heart without angina pectoris (Acute) Hyperlipidemia (Chronic) Vital Signs Temp Pulse Resp BP Pulse Ox O2 Del Method 98.4 F 89 17 110/53 L 94 Room Air 01/21/24 11:35 01/21/24 11:35 01/21/24 11:35 01/21/24 11:35 01/21/24 11:35 01/21/24 13:00 Oxygen Delivery Method Room Air Weight: 62.227 kg Body Mass Index (BMI) 20.2 Sodium 133 mmol/L (136-145) L 01/22/24 05:55 Potassium 4.1 mmol/L (3.5-5.1) 01/22/24 05:55 Chloride 98 mmol/L (98-107) 01/22/24 05:55 Carbon Dioxide 28.0 mmol/L (21.0-32.0) 01/22/24 05:55 Anion Gap 7 (5-15) 01/22/24 05:55 BUN 32 mg/dL (7-18) H 01/22/24 05:55 Creatinine 1.20 mg/dL (0.70-1.30) 01/22/24 05:55 Est GFR (MDRD) Af Amer 74 mL/min (>60) 01/22/24 05:55 Est GFR (MDRD) Non-Af 61 mL/min (>60) 01/22/24 05:55 BUN/Creatinine Ratio 26.7 RATIO (10-20) H 01/22/24 05:55 Glucose 127 mg/dL (74-106) H 01/22/24 05:55 Assessment/Plan: 1. Pain: Tylenol 1000mg PO Q6h PRN Pain 1-10. Please continue to monitor for increased/decreased s/s pain, PRN medication usage. -The patient has used zero doses of PRN medication. Pain appears managed at this time. 2. CAD/HLD/HTN: Aspirin 81mg PO Daily, Lipitor 20mg PO QHS, Losartan 50mg PO daily, Toprol XL 25mg PO Daily. Please continue to monitor BP (last 110/53), pulse (last 89), lipid panel annually or sooner if clinically indicated (last 03/2023), S/S bleeding/bruising. 3. UTI: Macrobid 100mg PO BID thru 01/22/24. Please continue to monitor for resolution of infection, cultures data (most recent cx show sensitivity to current agent), hydration staus, CrCl. 4. DVT Prophylaxis: Lovenox 30mg SC Daily. Please continue to monitor CrCl (est 38 mL/min on 01/21), S/S bleeding/bruising, H/h (hgb 12.2, hct 37.2 on 01/21) 5. Osteoarthritis: Celebrex 200mg PO Daily. Please continue to monitor for medication effectiveness, S/S GI bleeding, renal function. 6. General Wellness: vitamin D 25mcg PO Daily, MVI 1 tab PO Daily. 7. Bowel: Senna/Docusate 1 tab PO BID PRN. Please continue to monitor for increased/decreased constipation and/or diarrhea. - The patient has not had a documented BM since admission (<48hrs). If no BM in the next 48hrs, please consider administering PRN medications, thank you. Assessment/Plan for indications treated with psychotropic medications: -The patient is not being maintained on psychotropic medications at time of medication list review. Medical chart and medication regimen reviewed. The following medication irregularities or issues were identified: 1. Patient on Lovenox 30mg SC Daily of DVT Prophylaxis. based on estimated CrCl of 38mL/min, patient qualifies for 40mg SC daily. Please increase if clinically indicated, thank you. 2. Patient being maintained on statin therapy. Last lipid panel completed 03/2023 per EMR review. Please consider obtaining a lipid panel if clinically indicated, thank you. Date Date of Note:: 01/22/24
[2024-01-22 09:06] VITALS: BP 107/65; PULSE 100
[2024-01-22 09:08] VITALS: PULSE 100
[2024-01-22] MEDS: Metoprolol(XL)Succ 25 MG Tablet PO (09:08)
[2024-01-22] MEDS: Nitrofurantoin Macrocrystals 100 MG Capsule PO (09:08)
[2024-01-22] MEDS: Celecoxib 200 MG Capsule PO (09:09)
[2024-01-22] MEDS: Multivitamins,Therapeutic Tablet 1 TABLET PO (09:09)
[2024-01-22] MEDS: Aspirin E.C. 81 MG Tablet PO (09:09)
[2024-01-22] MEDS: Losartan Potassium 50 MG Tablet PO (09:09)
[2024-01-22] MEDS: Cholecalciferol (VIT D3) 25 MCG TABLET (1,000 UNITS) PO (09:09)
[2024-01-22] MEDS: Tuberculin,Purif.prot.deriv. 50 TU/ML Vial 0.1 ML ID (11:39)
--- NOTE | 2024-01-22 11:53 | NURSING ---
Research Nurse Note; Activity Asset: Mackenzie Mendiola is independent in his choice of daily activities with reminders. He will read the paper, watch tv and enjoys spending time with family. He welcomes visits from the therapy dog and the mill control operator when available. Staff will encourage socialization, remind him of weekly activities and respect his right to say no.
[2024-01-22 14:26] VITALS: BP 92/39; PULSE 73; RESP 18; TEMP 35.8; O2SAT 94
--- NOTE | 2024-01-22 17:45 | CASEMGMT ---
Admit Assessment Met with patient for TCU admission assessment. Patient sitting up, alert and oriented, willing to speak with this principal technical writer. Patient talkative throughout social work visit. Patient BIMS 14/15, needing cueing one of the recall words (bed). Patient confirms DNRCC code, and as POAHC. Patient's goal is to return home. Educate to MCR SNF benefit, and that length of stay is based on need and progress in treatment. Educated there will be care plan meetings to discuss progress in treatment and aftercare needs. Patient denies any questions or concerns at this time. Patient's goal: Return home with assist. SW to follow for support and discharge planning as indicated. -DIMA Adams.
[2024-01-22 18:32] VITALS: BP 95/50; PULSE 79
[2024-01-22] MEDS: Atorvastatin Calcium 20 MG Tablet PO (21:19)
[2024-01-23] MEDS: Enoxaparin 30 MG/0.3 ML Syringe SC (06:16)
[2024-01-23] MEDS: Aspirin E.C. 81 MG Tablet PO (09:41)
[2024-01-23] MEDS: Multivitamins,Therapeutic Tablet 1 TABLET PO (09:41)
[2024-01-23] MEDS: Losartan Potassium 50 MG Tablet PO (09:41)
[2024-01-23] MEDS: Celecoxib 200 MG Capsule PO (09:41)
[2024-01-23 09:42] VITALS: BP 98/63; PULSE 83
[2024-01-23] MEDS: Metoprolol(XL)Succ 25 MG Tablet PO (09:42)
[2024-01-23] MEDS: Cholecalciferol (VIT D3) 25 MCG TABLET (1,000 UNITS) PO (09:42)
[2024-01-23 14:54] VITALS: BP 96/51; PULSE 66; RESP 14; TEMP 36.1; O2SAT 94
[2024-01-23] MEDS: Ensure Plus High Protein 120 ML LIQUID PO (17:38)
[2024-01-23] MEDS: Atorvastatin Calcium 20 MG Tablet PO (20:13)
[2024-01-23 20:17] VITALS: RESP 16
[2024-01-24] MEDS: Enoxaparin 30 MG/0.3 ML Syringe SC (05:58)
[2024-01-24 10:15] VITALS: BP 88/59; PULSE 85; RESP 16; TEMP 36.6; O2SAT 93
[2024-01-24 10:18] VITALS: BP 103/55
[2024-01-24] MEDS: Cholecalciferol (VIT D3) 25 MCG TABLET (1,000 UNITS) PO (10:20)
[2024-01-24] MEDS: Aspirin E.C. 81 MG Tablet PO (10:20)
[2024-01-24] MEDS: Celecoxib 200 MG Capsule PO (10:20)
[2024-01-24] MEDS: Multivitamins,Therapeutic Tablet 1 TABLET PO (10:21)
--- NOTE | 2024-01-24 11:29 | NURSING ---
dr mcgee notified of low BP last few days & w/poor appetite & skin dry, tenting. new order 1 liter bolus, DC toprol, coceliaar & recheck labs in AM. after bolus, run fluids @ 75cc/hr. updated.
[2024-01-24] MEDS: 0.9% Normal Saline (1000mL) 1,000 ML 999 ML IV (12:05)
[2024-01-24] MEDS: 0.9% Normal Saline (1000mL) 1,000 ML 75 ML IV (13:10)
[2024-01-24 18:27] VITALS: PULSE 68; RESP 16
[2024-01-24] MEDS: Atorvastatin Calcium 20 MG Tablet PO (19:42)
[2024-01-24] MEDS: Senna/Docusate Sodium 1 Tablet PO (19:43)
[2024-01-25] MEDS: 0.9% Normal Saline (1000mL) 1,000 ML 75 ML IV ×2 (01:59→14:56)
[2024-01-25] MEDS: Enoxaparin 30 MG/0.3 ML Syringe SC (05:27)
[2024-01-25 05:43] LABS: Absolute Lymphocyte Count 0.35 X10^3/uL (0.83-4.51); Absolute Neutrophil Count 2.1 X10^3/uL (2.0-7.7); Basophil# 0.03 X10^3/uL; Basophil% 1.1 % (0-1); Eosinophil# 0.02 X10^3/uL; Eosinophils% 0.7 % (0-5); Hematocrit 33.8 % (40-54); Lymphocyte # 0.35 X10^3/ul (0.83-4.51); Lymphocyte % 12.4 % (19-41); Mean Corp Hgb Conc 32.5 g/dL (32-36); Mean Corpuscular Hgb 28.4 pg (27.0-32.0); Mean Corpuscular Volume 87.1 fL (80-94); Mean Platelet Vol. 10.6 fl (6.2-12.0); Monocyte# 0.32 X10^3/uL; Monocyte% 11.3 % (0-10); NRBC Flagged by Analyzer 0 % (0-5); Neutrophil # 2.08 X10^3/uL (2.7-7.7); Neutrophil % 73.8 % (47-70); POSITIVE DIFFERENTIAL YES; Platelet Count 207 K/mm3 (150-450); RBC Distribution Width CV 13.6 % (11.6-14.6); RBC Distribution Width SD 43.2 fl (35.1-43.9); Red Blood Count 3.88 M/mm3 (4.6-6.2); White Blood Count 2.8 K/mm3 (4.4-11.0)
[2024-01-25 05:58] LABS: Anion Gap 3 (5-15); BUN 34 mg/dL (7-18); BUN/Creat Ratio 26.6 RATIO (10-20); Calcium,Total 11.2 mg/dL (8.5-10.1); Chloride 105 mmol/L (98-107); Creatinine, Serum 1.28 mg/dL (0.70-1.30); EST Glomerular Filtration Rate 56 mL/min (>60); Est Glom Filt Rate - Afr Amer 68 mL/min (>60); Estimated Creatinine Clearance 35.66 ml/min; Glucose 116 mg/dL (74-106); Potassium 4.1 mmol/L (3.5-5.1); Sodium Level 136 mmol/L (136-145)
[2024-01-25] MEDS: Senna/Docusate Sodium 1 Tablet PO ×2 (10:28→21:01)
[2024-01-25] MEDS: Polyethylene Glycol 3350 17 GM PACKET PO (10:28)
[2024-01-25] MEDS: Multivitamins,Therapeutic Tablet 1 TABLET PO (10:28)
[2024-01-25] MEDS: Cholecalciferol (VIT D3) 25 MCG TABLET (1,000 UNITS) PO (10:29)
[2024-01-25] MEDS: Celecoxib 200 MG Capsule PO (10:29)
[2024-01-25] MEDS: Aspirin E.C. 81 MG Tablet PO (10:29)
--- NOTE | 2024-01-25 12:15 | NS ---
MST score = 5
--- NOTE | 2024-01-25 14:10 | CHAPLAIN ---
Type of Pastoral Visit _x__ Initial Visit ___ Follow-up Visit ___ On-call Visit ___ General Patient Visit ___ Spiritual Assessment ___ Family Conference ___ Bereavement ___ Rapid Response ___ Code Blue ___ Other (describe below) Pastoral Care Referral From ___ Patient _x__ Family _x__ Nurse ___ Physician ___ Machine Molder Squeeze ___ Accountant Supervisor ___ Other (describe below) Sacrament/Intervention _x__ Active listening ___ Anointing ___ Jew ___ Bereavement ___ Communion _x__ [place] exploration ___ _x__ Life review _x__ Prayer ___ Reconciliation ___ Sacrament of Sick _x__ Supportive presence ___ Wedding ___ Other (describe below) Pastoral Comments call came to this box builder from unit requesting a visit to this room and in particular the spouse of patient; found spouse in pt's room along with the resident director; pt spouse is talkative about the patient's recent decline in condition and weight loss; spouse repeats several times I don't know what this is leaning towards and I'm not sure of what the doctor's are finding and he has declined so much and I don't know what is going on (even as patient has had second bout with cancer); spouse has a meeting tomorrow with the doctor; lots of hearing given, tons of questions are referred back to spouse; pt and spouse have been 66 years and spouse is not aware of the dying process; family is not connected to a jew or kenia community with the exception of a good friend of the Mennonite tradition; prayer is accepted at this time with offer of future support
[2024-01-25 14:36] VITALS: BP 109/55; PULSE 72; RESP 22; O2SAT 92
[2024-01-25 15:08] VITALS: TEMP 36.6
[2024-01-25] MEDS: Atorvastatin Calcium 20 MG Tablet PO (21:01)
[2024-01-26] MEDS: 0.9% Normal Saline (1000mL) 1,000 ML 75 ML IV ×2 (04:16→17:19)
[2024-01-26] MEDS: Enoxaparin 30 MG/0.3 ML Syringe SC (05:54)
[2024-01-26] MEDS: Aspirin E.C. 81 MG Tablet PO (09:10)
[2024-01-26] MEDS: Celecoxib 200 MG Capsule PO (09:10)
[2024-01-26] MEDS: Polyethylene Glycol 3350 17 GM PACKET PO (09:10)
[2024-01-26] MEDS: Multivitamins,Therapeutic Tablet 1 TABLET PO (09:10)
[2024-01-26] MEDS: Senna/Docusate Sodium 1 Tablet PO ×2 (09:10→20:21)
[2024-01-26] MEDS: Cholecalciferol (VIT D3) 25 MCG TABLET (1,000 UNITS) PO (09:10)
[2024-01-26 14:42] VITALS: BP 114/57; PULSE 70; RESP 16; TEMP 36.7
[2024-01-26] MEDS: Acetaminophen 500 MG Tablet 1000 MG PO (18:25)
[2024-01-26] MEDS: Atorvastatin Calcium 20 MG Tablet PO (20:20)
[2024-01-26 20:35] VITALS: RESP 16
[2024-01-27] MEDS: Enoxaparin 30 MG/0.3 ML Syringe SC (05:11)
[2024-01-27 06:40] VITALS: RESP 16
[2024-01-27] MEDS: 0.9% Normal Saline (1000mL) 1,000 ML 75 ML IV ×2 (06:43→20:00)
[2024-01-27] MEDS: Multivitamins,Therapeutic Tablet 1 TABLET PO (10:53)
[2024-01-27] MEDS: Senna/Docusate Sodium 1 Tablet PO ×2 (10:53→19:54)
[2024-01-27] MEDS: Aspirin E.C. 81 MG Tablet PO (10:53)
[2024-01-27] MEDS: Polyethylene Glycol 3350 17 GM PACKET PO (10:53)
[2024-01-27] MEDS: Cholecalciferol (VIT D3) 25 MCG TABLET (1,000 UNITS) PO (10:53)
[2024-01-27] MEDS: Celecoxib 200 MG Capsule PO (10:53)
--- NOTE | 2024-01-27 10:57 | CASEMGMT ---
Addendum entered by Graciela Chou 01/27/24 13:38: [facility] to meet with pt and on 01/27 at 1300. Nursing updated. ERIK Byers Original Note: Social Work Plan of care meeting held on this date with pt and pt's Darlin in attendance. PT/OT/ST and nutrition discussed pt current participation. Pt with difficulty eating and drinking and not feeling well enough for therapy the last few days. SW spoke with pt and regarding goals of care moving forward. stating that physician has spoke to her about end of life care. SW provided emotional support. SW discussed options of continued care on TCU with attempts to regain strength and participate in therapy vs hospice care in which pt would be made comfortable. Pt's is unable to care for pt at home and has limited supports. She did state that she has considered nursing facilities in [place] and has the finances to private pay if need be. SW educated pt and that at this time MCR benefit is covering stay at TCU. SW spoke with pt and regarding hospice care and pt is agreeable to speak with hospice for information on services. Referral made to Sherry at [facility]. Clinical information faxed. Nursing updated. [facility] will review referral and call pt's to set an appointment for an informational meeting. ERIK Byers
[2024-01-27 14:05] VITALS: BP 123/60; PULSE 73; RESP 14; TEMP 36.2; O2SAT 93
[2024-01-27] MEDS: Magnesium Hydroxide 30 ML UDC PO (16:56)
[2024-01-27] MEDS: Atorvastatin Calcium 20 MG Tablet PO (19:55)
--- NOTE | 2024-01-27 20:50 | NURSING ---
Pt incontinent of bowel and urine, sore to buttocks unable to heal. Consulted Dr. Trevizo via telephone, N.O. for primofit.
[2024-01-28] MEDS: Enoxaparin 30 MG/0.3 ML Syringe SC (05:45)
[2024-01-28 08:17] VITALS: BP 121/65; PULSE 83; RESP 18; O2SAT 93
[2024-01-28] MEDS: Senna/Docusate Sodium 1 Tablet PO ×2 (08:20→21:09)
[2024-01-28] MEDS: Multivitamins,Therapeutic Tablet 1 TABLET PO (08:20)
[2024-01-28] MEDS: Cholecalciferol (VIT D3) 25 MCG TABLET (1,000 UNITS) PO (08:20)
[2024-01-28] MEDS: Celecoxib 200 MG Capsule PO (08:20)
[2024-01-28] MEDS: Polyethylene Glycol 3350 17 GM PACKET PO (08:20)
[2024-01-28] MEDS: Aspirin E.C. 81 MG Tablet PO (08:20)
[2024-01-28] MEDS: 0.9% Normal Saline (1000mL) 1,000 ML 75 ML IV ×2 (09:20→22:02)
[2024-01-28] MEDS: Acetaminophen 500 MG Tablet 1000 MG PO (10:52)
--- NOTE | 2024-01-28 11:15 | CASEMGMT ---
Social Work SW met with pt and completed PHQ9 () and BIMS (03/24) interviews for MDS assessment. SW explored pt's feeling of depression. Pt tearful stating that he is afraid we are nearing the end Emotional support provided to pt and . Pt is painful throughout the conversation and having difficulty maintaining conversation. Pt and to meet with [facility] today at 1pm. Nursing updated on pt's pain. ERIK Byers
--- NOTE | 2024-01-28 15:46 | CASEMGMT ---
Social Work Pt and pt's met with [facility]. FORREST spoke with combination technician Gladys and pt's . Pt's is agreeable to hospice services and would like to take pt home. Pt's dgt plans to come from [place] to assist with pt care. Pt's bathroom is currently being remodeled for pt's accessibility. Pt requesting pt remain in TCU for continued therapy to get pt as strong as possible and will transition home with hospice later next week once bathroom is complete and dgt is here. Team updated. FORREST to notify hospice when pt is ready for dc and hospice will arranged for DME in the home and start of care. ERIK Byers
[2024-01-28 16:00] VITALS: TEMP 36.3
[2024-01-28] MEDS: Atorvastatin Calcium 20 MG Tablet PO (21:09)
[2024-01-29] MEDS: Enoxaparin 30 MG/0.3 ML Syringe SC (05:08)
[2024-01-29 06:06] LABS: Absolute Lymphocyte Count 0.38 X10^3/uL (0.83-4.51); Absolute Neutrophil Count 2.1 X10^3/uL (2.0-7.7); Basophil# 0.02 X10^3/uL; Basophil% 0.7 % (0-1); Eosinophil# 0.03 X10^3/uL; Eosinophils% 1.1 % (0-5); Hemoglobin 12.1 g/dL (13.0-16.5); Lymphocyte # 0.38 X10^3/ul (0.83-4.51); Lymphocyte % 13.6 % (19-41); Mean Corp Hgb Conc 32.7 g/dL (32-36); Mean Corpuscular Hgb 28.3 pg (27.0-32.0); Mean Corpuscular Volume 86.4 fL (80-94); Mean Platelet Vol. 11.1 fl (6.2-12.0); Monocyte# 0.25 X10^3/uL; Monocyte% 8.9 % (0-10); NRBC Flagged by Analyzer 0 % (0-5); Neutrophil # 2.11 X10^3/uL (2.7-7.7); Neutrophil % 75.3 % (47-70); POSITIVE DIFFERENTIAL YES; Platelet Count 194 K/mm3 (150-450); RBC Distribution Width CV 13.8 % (11.6-14.6); RBC Distribution Width SD 43.4 fl (35.1-43.9); Red Blood Count 4.28 M/mm3 (4.6-6.2); White Blood Count 2.8 K/mm3 (4.4-11.0)
[2024-01-29 06:08] LABS: Differential Indicated SCAN CRITERIA MET
[2024-01-29 06:21] LABS: Anion Gap 3 (5-15); BUN 18 mg/dL (7-18); BUN/Creat Ratio 15.8 RATIO (10-20); Calcium,Total 11.4 mg/dL (8.5-10.1); Chloride 103 mmol/L (98-107); Creatinine, Serum 1.14 mg/dL (0.70-1.30); EST Glomerular Filtration Rate 65 mL/min (>60); Est Glom Filt Rate - Afr Amer 78 mL/min (>60); Estimated Creatinine Clearance 40.03 ml/min; Glucose 109 mg/dL (74-106); Potassium 3.7 mmol/L (3.5-5.1); Sodium Level 135 mmol/L (136-145)
[2024-01-29 10:49] VITALS: BP 156/76; PULSE 87; RESP 17; TEMP 37.1; O2SAT 92
[2024-01-29] MEDS: Multivitamins,Therapeutic Tablet 1 TABLET PO (10:51)
[2024-01-29] MEDS: 0.9% Normal Saline (1000mL) 1,000 ML 75 ML IV ×2 (11:20→23:22)
[2024-01-29] MEDS: 0.9% Saline Lock 10 ML Syringe IV (11:21)
[2024-01-29] MEDS: Tuberculin,Purif.prot.deriv. 50 TU/ML Vial 0.1 ML ID (12:33)
[2024-01-29] MEDS: Atropine Sulfate 1% 2 ml Bottle 4 DRP PO (23:28)
[2024-01-30] MEDS: 0.9% Normal Saline (1000mL) 1,000 ML 75 ML IV (12:21)
[2024-01-30 14:51] VITALS: BP 121/75; PULSE 90; RESP 18; TEMP 36.6; O2SAT 95
[2024-01-31] MEDS: 0.9% Normal Saline (1000mL) 1,000 ML 75 ML IV ×2 (01:00→13:44)
[2024-01-31 13:24] VITALS: BP 134/83; PULSE 89; RESP 18; TEMP 36.9; O2SAT 92
[2024-01-31] MEDS: Atropine Sulfate 1% 2 ml Bottle 4 DRP PO (20:44)
[2024-01-31] MEDS: morphine (oral solution) 10MG/0.5ML Syringe 10 MG SL/PO (20:44)
[2024-01-31 22:00] VITALS: RESP 16
[2024-02-01] MEDS: Atropine Sulfate 1% 2 ml Bottle 4 DRP PO ×3 (01:03→15:22)
[2024-02-01] MEDS: morphine (oral solution) 10MG/0.5ML Syringe 10 MG SL/PO ×2 (01:03→15:21)
[2024-02-01] MEDS: 0.9% Normal Saline (1000mL) 1,000 ML 75 ML IV (02:10)
[2024-02-01 09:49] VITALS: BP 112/72; PULSE 125; RESP 28; TEMP 37.7; O2SAT 83
--- NOTE | 2024-02-01 09:57 | NURSING ---
R' RESTING SUPINE IN BED. VS OBTAINED. SPO2 83% ON ROOM AIR. PLACED ON 2L O2 AND INCREASED TO 91%. MOIST/CONGESTED COUGH NOTED. ATROPINE GIVEN. COOL CLOTH APPLIED TO FOREHEAD. HOB ELEVATED FOR COMFORT. R' OPENS HIS EYES BUT IS NOT VERBALLY RESPONSIVE. LIPS MOISTENED. R' DOES NOT APPEAR TO BE IN PAIN. WILL MONITOR.
--- NOTE | 2024-02-01 12:05 | CASEMGMT ---
Addendum entered by Graciela Chou 02/01/24 15:18: SW spoke with hospice nurse Gladys. Pt has been accept into the IPU at [facility]. Transportation arranged with [facility] for 6pm cotton picking machine operator via cot. Nursing, hospice and pt's informed of cotton picking machine operator time. ERIK Yip Addendum entered by Graciela Chou 02/01/24 13:08: Return call from [facility] and nurse will be here at 2pm today to assess for the Inpatient Hospice Unit. SW updated pt's and nursing. ERIK Byers Original Note: Social Work SW notified by nursing that pt has had a medical decline and is present in room and requesting SW. FORREST met with pt who is inquiring about the inpatient hospice unit. SW explained unit and offered emotional support to pt's . Call placed to [facility] and requested pt be assessed today for the IPU. Hospice to call pt's to set up an appointment today. and nursing notified. ERIK Yip
--- NOTE | 2024-02-01 12:10 | NURSING ---
R' NOT RESPONSIVE VERBALLY. R' NOT EATING/DRINKING. IVF INFUSING. REMAINS ON O2. EMOTIONAL/CRYING. SHE STATES SHE DON'T THINK HE CAN COME HOME WITH HER LIKE THIS. WELDER MACHINE OPERATOR CONTACTED. SHE WILL SPEAK TO FOR PLANNING TO IP. HE DOES NOT APPEAR TO BE IN PAIN. WILL CONTINUE TO MONITOR.
[2024-02-01 13:34] LABS: Pathologist Review Reviewed
[2024-02-01 14:13] VITALS: BP 113/66; PULSE 102; RESP 18; TEMP 36.1; O2SAT 89
--- NOTE | 2024-02-01 15:40 | NURSING ---
Report called to CHEKO Harden at [facility].
[2024-02-01] MEDS: LORazepam 2 MG/ML Bottle 1 MG SL (16:03)
--- NOTE | 2024-02-01 16:32 | CASEMGMT ---
Social Work Phone call to Pt's Darlin Nixon and NOMNC explained. Darlin giving verbal agreement to sign NOMNC over the phone as she is choosing for pt to go to the inpatient hospice unit on this date. Copy of NOMNC left in pt room and placed on Pt chart. ERIK Byers
--- NOTE | 2024-02-01 17:22 | DS.PCM_ITS ---
Providers Date of Admission: 01/21/24 Primary Care Physician: Kassie Vital MD Consultations 01/27/24 10:54 Consult: Hospice / Palliative Care Routine Consulting Provider: [facility] Reason for Consult: Bladder CA EMERGENT Consult: No MD Notified: Yes Date Notified: 01/27/24 Time Notified: 10:54 Method of Notification: Answering Service Reason For Visit: ADRIAN,HYPERKALEMIA,FTT Diagnosis Discharge Diagnosis (1) Debility: Status: Resolved Code(s): R53.81 - Other malaise (2) UTI (urinary tract infection): Status: Resolved Code(s): N39.0 - Urinary tract infection, site not specified (3) ADRIAN (acute kidney injury): Status: Resolved Code(s): N17.9 - Acute kidney failure, unspecified (4) Atherosclerosis of coronary artery of [place] heart without angina pectoris: Status: Inactive Code(s): I25.10 - Atherosclerotic heart disease of [place] coronary artery without angina pectoris (5) Hyperlipidemia: Status: Inactive Code(s): E78.5 - Hyperlipidemia, unspecified (6) Osteoarthritis: Status: Acute Code(s): M19.90 - Unspecified osteoarthritis, unspecified site (7) Vitamin D deficiency: Status: Acute Code(s): E55.9 - Vitamin D deficiency, unspecified (8) Bladder cancer: Status: Acute Code(s): C67.9 - Malignant neoplasm of bladder, unspecified Plan 88 year old male with below past medical history significant for bladder cancer, hospitalized for weakness 2/2 UTI, ADRIAN, admitted to TCU with debility, here for rehabilitation, strengthening, prior to discharge home with . * Debility - PT/OT. * Pain - Tylenol 1000mg q6 prn pain (1-10). * Bowel - senna/colace 1 tablet bid prn. * Adult immunization - Administer pneumonia vaccine, covid vaccine, flu vaccine as appropriate. * DVT prophylaxis - Lovenox 30mg sc daily. * Coronary artery disease - Metoprolol succinate 25mg daily, Losartan 50mg daily, Aspirin 81mg daily. * Hyperlipidemia - Atorvastatin 20mg qhs. * Osteoarthritis - Celebrex 200mg daily. * Vitamin D deficiency - D3 25mcg daily. * Hypertension - Metoprolol succinate 25mg daily, Losartan 50mg daily. * Nutrition - MVI 1 tablet daily. * Kocuria Rosea UTI - Nitrofurantoin 100mg bid thru 01/22/2024. Hospital Course Operations None Procedures None Summary of Care Provided Minutes Spent on Discharge: 35 Hospital Course: 88 year old male with below past medical history significant for bladder cancer, hospitalized for weakness 2/2 UTI, ADRIAN, admitted to TCU with debility, here for rehabilitation, strengthening, prior to discharge home with . Resident dying, short of breath, uncomfortable. Discharge to inpatient hospice for terminal care. Physical Exam Const alert General Appearance: cooperative HEENT normocephalic Eyes PERRL and EOMs intact bilaterally Neck supple, no JVD and no carotid bruits Resp normal respiratory effort, normal air movement and clear to auscultation bilaterally Cardio regular rate and regular rhythm GI normal to inspection, nondistended, normoactive bowel sounds, non-tender and non-distended Extremity normal capillary refill General Extremity: Negative for edema Skin no rashes or lesions noted General Skin Exam: no breakdown Psych affect normal Appearance: appropriate Medical Records Data Medical Nutrition Assessment Dietitian: Malnutrition Criteria Met Start: 01/22/24 16:03 Freq: Status: Active Protocol: Document 01/27/24 11:21 SLA (Rec: 01/27/24 11:21 SLA [id number]) Nutrition Malnutrition Evidence of Malnutrition Exists Yes Malnutrition (moderate): Chronic Malnutrition (unspecified) Severe pro/quinn Evidenced By Suboptimal Energy Intake ( Severe),Weight Loss (Severe) Clinical Problem Chronic Disease or Condition Related Malnutrition Etiology related to chronic condition- bladder cancer and inadequate energy intake Signs/Symptoms as evidenced by 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 Weight / BMI Weight Weight: 62 kg Body Mass Index (BMI) 20.2 ABG / Lab / Microbiology Data 01/29/24 05:45 01/29/24 05:45 Laboratory: Laboratory Results - last 24 hr 01/29/24 05:45: Diff Path Review Reviewed Microbiology: Microbiology 01/29/24 05:13 Nasal Secretion SARS-CoV-2 Antigen (Rapid) - Final 01/22/24 05:24 Nasal Secretion SARS-CoV-2 Antigen (Rapid) - Final D/C Instructions Discharge Diet: No restrictions Discharge Activity: Return to Normal Activity Weight Bearing Status: Weight bearing as tolerated Additional Instructions: Discharge to inpatient hospice for terminal care. Meaningful Use Info Meaningful Use Meaningful Use Diagnoses (Choose all that apply): None applicable Ischemic Stroke Statin Dosing Therapy Reference: STATIN DOSE THERAPY REFERENCE: * Patients > 75 years receive moderate or high dose statin therapy. * Patients 75 years or YOUNGER should receive HIGH intensity statin dose unless contraindicated. You will be required to document reason for non-treatment if statin daily dose does not meet guidelines. HIGH DOSE STATIN THERAPY DAILY Atorvastatin > than or = to 40 mg Rosuvastatin > than or = to 20 mg Amlodipine + Atorvastatin > than or = to 2.5/40 mg Ezetimibe + Simvastatin 10/80 mg Simvastatin 80mg Discharge Plan Admission Admit Date/Time: 01/21/24 11:35 Primary Reason for Your Visit: Debility. Attending Provider: Russell Trevizo Chi Primary Care Provider: Kassie Vital Consulting Providers: Claudio Gibbons; Tiff Frank; Christi Sheppard; Erin Galindo PSYCHOLOGICAL TESTS SALES AGENT Instructions Additional Instructions / Restrictions: Discharge to inpatient hospice for terminal care. Discharge Orders/Prescriptions Prescriptions: Discontinued aspirin [Adult Low Dose Aspirin] 81 mg tablet,delayed release (DR/EC) 81 mg PO DAILY atorvastatin 20 mg tablet 20 mg PO QHS celecoxib 200 mg capsule 200 mg PO DAILY metoprolol succinate 25 mg tablet extended release 24 hr 25 mg PO DAILY glucosamine HCl 1,500 mg tablet 1,200 mg PO DAILY Rx Instructions: administer with a meal multivitamin Tablet 1 tab PO DAILY Adult 50 Plus Probiotic 4 billion cell capsule 4,000 mmu cells PO DAILY Rx Instructions: administer with a meal cholecalciferol (vitamin D3) 25 mcg (1,000 unit) capsule 25 mcg PO DAILY coenzyme Q10 200 mg capsule 200 mg PO DAILY [id number] [krill oil] 1,814-666-74-80 mg capsule 1 cap PO DAILY acetaminophen 325 mg Tablet 650 mg PO Q6H PRN PRN (Reason: Pain 1-10 Or Fever>100.7) Qty: 0 0RF nitrofurantoin macrocrystal 100 mg capsule 100 mg PO BID Qty: 2 0RF Rx Instructions: must administer with a meal/food losartan 50 mg tablet 50 mg PO DAILY Qty: 90 3RF Referrals / Follow Up: Kassie Vital MD [Primary Care Provider] - Disposition Disposition (needs filled in before D/C Order can be placed): Hospice in Medical Facility
--- NOTE | 2024-02-03 08:00 | MDS.RN ---
Information for the MDS was obtained from review of the clinical record, interview of resident, staff, and direct observation of resident?s care.
== END 2024-02-01 19:00 | disposition hospice, inpatient (51) | DRG 690 ==
PROVIDERS: Admitting Provider Family Medicine Geriatric Medicine; PCP Family Medicine; Visit Provider Family Medicine Geriatric Medicine
DX: N39.0 Urinary tract infection, site not specified (principal); E44.0 Moderate protein-calorie malnutrition; C67.9 Malignant neoplasm of bladder, unspecified; E55.9 Vitamin D deficiency, unspecified; E78.5 Hyperlipidemia, unspecified; B96.89 Other specified bacterial agents as the cause of diseases classified elsewhere; I25.10 Atherosclerotic heart disease of native coronary artery without angina pectoris; M19.90 Unspecified osteoarthritis, unspecified site; F41.9 Anxiety disorder, unspecified; Z95.5 Presence of coronary angioplasty implant and graft; Z87.891 Personal history of nicotine dependence; Z79.82 Long term (current) use of aspirin; Z79.899 Other long term (current) drug therapy; Z51.5 Encounter for palliative care; Z68.20 Body mass index [BMI] 20.0-20.9, adult
CPT/HCPCS: 36415; 80048; 85025; 87811; 92526; 92610; 97110; 97162; 97166; 97530; 97535; 97802; J7030; A4216